=== PATIENT | female | born 1935 | race Caucasian/White ===

== ENCOUNTER 2019-12-04 08:50 | Outpatient (CLI) | payer MEDICARE, OTHER, SELFPAY ==
--- NOTE | ~2019-12-04 | XR_ITS ---
XR chest 2V DATE: 12/04/2019 09:13 INDICATION: Long-term amiodarone use TECHNIQUE: 2 views COMPARISON: 11/28/2017 PA and lateral chest FINDINGS: Borderline heart size. Aortic calcification, ectasia and tortuosity. No hilar or mediastina l enlargement. There is mild chronic discoid scarring in the lower lung zones. No interval pulmonary infiltrate or c onsolidation, pleural effusion or pulmonary vascular congestion or pneumothorax. Diffuse osteopenia. Thoracic kyphosis. IMPRESSION: Borderline heart size. Aortic calcification, ectasia, tortuosity No interval active pulmonary disease or significant change since 11/28/2017 Reviewed, dictated and finalized at location A.
[2019-12-04 09:27] LABS: Alanine Aminotransferase 13 U/L (4-35); Albumin Level 4.1 g/dL (3.5-5.1); Alkaline Phosphatase 80 U/L (38-126); Anion Gap 10.7 mmol/L (7-16); Aspartate Amino Transferase 22 U/L (14-36); Bilirubin,Total 0.3 mg/dL (0.2-1.3); Blood Urea Nitrogen 17 mg/dL (7-17); Carbon Dioxide 31 mmol/L (22-30); Chloride 101 mmol/L (98-107); Estimated Glomerular Filt Rate 60; Glucose 84 mg/dL (65-105); Potassium 3.7 mmol/L (3.4-5.0); Sodium 139 mmol/L (137-145)
[2019-12-04 10:13] LABS: Free T4 Free Thyroxine 2.05 ng/mL (0.78-2.19)
== END 2019-12-04 08:51 | disposition home or self-care (01) ==
PROVIDERS: PCP Internal Medicine; Visit Provider Internal Medicine Cardiovascular Disease
DX: Z79.899 Other long term (current) drug therapy (principal); I70.0 Atherosclerosis of aorta
CPT/HCPCS: 36415; 71046; 80053; 84439; 84443

== ENCOUNTER 2019-12-14 07:50 | Outpatient (CLI) | payer MEDICARE, OTHER, SELFPAY ==
--- NOTE | ~2019-12-14 | XR_ITS ---
EXAMINATION: XR abdomen/kub 1V INDICATION: Left renal mass TECHNIQUE: Supine views of the abdomen were obtained on 2 radiographs. COMPARISON: None FINDINGS: There are multiple phleboliths of the pelvis. No urinary tract calculi are identified. The lung bases are clear. The bowel gas pattern is normal. There are no dilated loops of bowel. Orthopedi c screws are noted in the right femoral neck. IMPRESSION: 1. Unremarkable abdominal radiographs. Reviewed, dictated and finalized at location A.
--- NOTE | ~2019-12-14 | CT_ITS ---
EXAMINATION: CT abdomen pelvis wo/w con DATE: 12/14/2019 08:42 INDICATION: Left kidney mass TECHNIQUE: Computed tomography (CT) of the abdomen was performed without intravenous contrast. CT of the abdomen and pelvis was then performed with a total of 100 mL Omnipaque 350 intravenous contrast. The dose-length product (DLP) was 661.05 mGy-cm. Automated exposure control and iterative reconstruct ion technique were employed. COMPARISON: 06/16/2015 FINDINGS: Minimal dependent atelectasis is present in the lung bases. The heart size is enlarged. Cys ts of the liver measure up to 1.9 cm in the right hepatic lobe. The spleen, pancreas, and adrenal gla nds are normal. Stones are present in the nondistended gallbladder. The common bile duct measures up to 7 mm which is within normal limits for patient age. There is calcified atherosclerosis of the aort a and many of the other arteries. No stones are identified in the kidneys, ureters, or bladder. There is no hydronephrosis or hydroureter. No suspicious renal or urothelial lesion is identified. No luis eduardo d left kidney mass is identified. Cysts of the kidneys measure up to 5.7 cm on the right. No patholo gically enlarged abdominal or pelvic lymph nodes are identified. There is no free intraperitoneal gas or evidence of bowel obstruction. Colonic diverticulosis is present without evidence of diverticulit is. Internal stabilization pins are present in the right femoral neck. There is mild lumbar spondylos is. IMPRESSION: 1. No suspicious renal or urothelial lesion identified. 2. Cholelithiasis without evidence of cholecystitis. 3. Cardiomegaly. 4. Diverticulosis without evidence of diverticulitis. Reviewed, dictated and finalized at location A.
== END 2019-12-14 07:51 | disposition home or self-care (01) ==
PROVIDERS: PCP Internal Medicine; Visit Provider Nurse Practitioner Adult Health
DX: N28.89 Other specified disorders of kidney and ureter (principal); K80.20 Calculus of gallbladder without cholecystitis without obstruction; I51.7 Cardiomegaly; K57.30 Diverticulosis of large intestine without perforation or abscess without bleeding
CPT/HCPCS: 74018; 74178; Q9967

== ENCOUNTER 2020-01-07 10:39 | Outpatient (CLI) | payer MEDICARE, OTHER, SELFPAY ==
--- NOTE | ~2020-01-07 | XR_ITS ---
XR sinus min 3V DATE: 01/07/2020 11:03 INDICATION: Headaches, sinus pain TECHNIQUE: 5 views COMPARISON: None FINDINGS: The paranasal sinuses are normally developed and aerated. No mucoperiosteal thickening, sof t tissue opacity or fluid level is evident. The mastoid air cells are unremarkable. IMPRESSION: No evidence of sinusitis Reviewed, dictated and finalized at location A. IMPRESSION: No evidence of sinusitis
== END 2020-01-07 10:40 | disposition home or self-care (01) ==
LOC: ANHIMG 10:47
PROVIDERS: PCP Internal Medicine; Visit Provider Internal Medicine
DX: J34.89 Other specified disorders of nose and nasal sinuses (principal); R51 Headache
CPT/HCPCS: 70220

== ENCOUNTER 2020-03-14 07:14 | Outpatient (CLI) | payer MEDICARE, OTHER, SELFPAY ==
--- NOTE | ~2020-03-14 | CT_ITS ---
EXAMINATION: CT brain wo con EXAM DATE: 03/14/2020 07:30 INDICATION: R26.89 - Other abnormalities of gait and mobility . TECHNIQUE: Spiral CT of the head was performed without contrast. Axial, coronal and sagittal images were reviewed. The dose-length product (DLP) for this examination was 605.33 mGy-cm. The exposure w as tailored according to patient size, and iterative reconstruction (ASIR) was used as additional dos e reduction technique. Comparison is made to prior examination from 11/13/2011. FINDINGS: There is no acute intraparenchymal hemorrhage. No evidence of intraparenchymal brain mass lesion. No evidence of acute infarction. Please note that initial head CT has limited sensitivity f or small or acute infarctions. There is moderate periventricular and subcortical hypodensity, nonspec ific but probably related to small vessel ischemic disease. There is moderate prominence of the sul ci and ventricles related to cerebral atrophy. There is intracranial carotid arteriosclerosis. The re are no extra-axial collections. There is no mass effect or midline shift. Patient has had bilate ral ocular lens surgery. Soft tissue is unremarkable. The visualized sinuses and mastoid air cells are well aerated. IMPRESSION: 1. No acute intracranial findings. 2. Chronic age related findings. Reviewed, dictated and finalized at location A. ESTRA DIRECTOR
== END 2020-03-14 07:15 | disposition home or self-care (01) ==
PROVIDERS: PCP Internal Medicine; Visit Provider Nurse Practitioner
DX: R26.89 Other abnormalities of gait and mobility (principal)
CPT/HCPCS: 70450

== ENCOUNTER 2020-03-21 09:36 | Outpatient (CLI) | payer MEDICARE, SELFPAY ==
[2020-03-21 10:48] LABS: Anion Gap 6 mmol/L (8-16); Blood Urea Nitrogen 26 mg/dL (7-17); Calcium 9.5 mg/dL (8.4-10.2); Carbon Dioxide 37 mmol/L (22-30); Chloride 97 mmol/L (98-107); Estimated Glomerular Filt Rate 43; Glucose 104 mg/dL (65-105); Potassium 3.4 mmol/L (3.4-5.0); Sodium 140 mmol/L (137-145)
== END 2020-03-21 09:37 | disposition home or self-care (01) ==
PROVIDERS: PCP Internal Medicine; Visit Provider Internal Medicine Cardiovascular Disease
DX: Z51.81 Encounter for therapeutic drug level monitoring (principal); Z79.899 Other long term (current) drug therapy; I10 Essential (primary) hypertension
CPT/HCPCS: 36415; 80048

== ENCOUNTER 2020-07-07 08:30 | Outpatient (CLI) | payer MEDICARE, SELFPAY ==
[2020-07-07 08:45] LABS: Hematocrit 41.3 % (37.0-47.0)
[2020-07-07 08:58] LABS: Alanine Aminotransferase 12 U/L (4-35); Albumin Level 3.9 g/dL (3.5-5.1); Alkaline Phosphatase 62 U/L (38-126); Anion Gap 3 mmol/L (8-16); Aspartate Amino Transferase 22 U/L (14-36); Bilirubin,Total 0.5 mg/dL (0.2-1.3); Blood Urea Nitrogen 21 mg/dL (7-17); Calcium 9.1 mg/dL (8.4-10.2); Carbon Dioxide 35 mmol/L (22-30); Chloride 104 mmol/L (98-107); Cholesterol 252 mg/dL (0-200); Estimated Glomerular Filt Rate 43; Glucose 90 mg/dL (65-105); HDL Direct 83 mg/dL; Potassium 3.6 mmol/L (3.4-5.0); Sodium 142 mmol/L (137-145); Triglycerides 62 mg/dL (<150)
[2020-07-07 09:09] LABS: LDL Cholesterol Direct 118 mg/dL
[2020-07-07 09:54] LABS: Iron 102 ug/dL (37-170)
[2020-07-07 10:04] LABS: Percent Iron Saturation 40 % (20-50)
== END 2020-07-07 08:31 | disposition home or self-care (01) ==
PROVIDERS: PCP Internal Medicine; Visit Provider Internal Medicine
DX: E78.5 Hyperlipidemia, unspecified (principal); I10 Essential (primary) hypertension; Z79.899 Other long term (current) drug therapy; D64.9 Anemia, unspecified; E61.1 Iron deficiency; E03.9 Hypothyroidism, unspecified
CPT/HCPCS: 36415; 80053; 80061; 83540; 83550; 84443; 85014; 85018

== ENCOUNTER 2020-11-16 16:10 | Emergency (ER) | payer MEDICARE, OTHER, SELFPAY ==
--- NOTE | ~2020-11-16 | XR_ITS ---
XR chest 1V DATE: 11/16/2020 16:58 INDICATION: Left subcapital femoral neck fracture TECHNIQUE: Supine AP view COMPARISON: 12/04/2019 PA and lateral chest FINDINGS: Cardiomegaly. Aortic calcification, ectasia and tortuosity. No pulmonary infiltrate or consolidation, pleural effusion or pulmonary vascular congestion or pneumo thorax is detected. Diffuse osteopenia. IMPRESSION: Cardiomegaly Aortic atherosclerosis No active pulmonary disease Diffuse osteopenia Reviewed, dictated and finalized at location A.
--- NOTE | ~2020-11-16 | CT_ITS ---
EXAMINATION: CT brain wo con EXAM DATE: 11/16/2020 16:49 INDICATION: Head laceration, injury, on blood thinners. TECHNIQUE: Spiral CT of the head was performed without contrast. Axial, coronal and sagittal images were reviewed. The dose-length product (DLP) for this examination was 605.33 mGy-cm. The exposure w as tailored according to patient size, and iterative reconstruction (ASIR) was used as additional dos e reduction technique. Comparison is made to prior examination from 03/14/2020. Findings: there is acute extra-axial hemorrhage overlying the right frontotemporal lobe. Uncertain wh ether or not this is subdural or epidural, however there is no overlying calvarial fracture. This nasrin sures up to 1.2 cm in thickness, is causing mild mass effect, about 5 mm contralateral midline shift. There is small amount of acute subarachnoid hemorrhage adjacent to the right mesial temporal lobe. Th ere is old left internal capsular lacunar infarction. No larger territorial infarction or brain mass. There is moderate atrophy and microangiopathy. No obstructive hydrocephalus. Bilateral cataract surg marcial. IMPRESSION: 1. Moderate-sized acute extra-axial hematoma overlying right frontotemporal lobe. Subdural versus ep idural location. No overlying calvarial fracture. 2. Small amount of right mesial temporal region acute subarachnoid hemorrhage. I discussed acute extra-axial hematoma with Ely Navarro PA-C at 11/16/2020 16:57 CDT. Reviewed, dictated and finalized at location A. IMPRESSION: 1. Moderate-sized acute extra-axial hematoma overlying right frontotemporal lo be. Subdural versus epidural location. No overlying calvarial fracture. 2. Small amount of right mesial temporal region acute subarachnoid hemorrhage. I discussed acute extra-axial hematoma with Ely Navarro PA-C at 11/16/2020 16:57 CDT.
--- NOTE | ~2020-11-16 | XR_ITS ---
XR hip LT 2V w AP pelvis DATE: 11/16/2020 16:57 INDICATION: Fall. Shortening and rotation of the left lower extremity TECHNIQUE: AP pelvis. AP and crosstable lateral views of left hip COMPARISON: None FINDINGS: There is a mildly superolaterally displaced left subcapital femoral neck fracture. Diffuse osteopenia. There are 3 pins for prior right subcapital femoral neck fracture. The pubic symphysis and sacroiliac joints are intact. No pelvic fracture is detected. Levoscoliosis and degenerative disc disease of the lumbar spine. IMPRESSION: Left subcapital femoral neck fracture Status post ORIF old right subcapital femoral neck fracture Osteopenia Reviewed, dictated and finalized at location A.
[2020-11-16 16:08] VITALS: BP 150/89; RESP 16; TEMP 36.8; O2SAT 93
--- NOTE | 2020-11-16 16:39 | ECG_ITS ---
Measurements Intervals [place] Rate: 73 P: IN: 0 QRS: -40 QRSD: 125 T: 50 QT: 441 QTc: 489 Interpretive Statements SINUS RHTYHM ATRIAL COUPLET AND ATRIAL PREMATURE COMPLEXES LEFT AXIS DEVIATION INTRAVENTRICULAR CONDUCTION DELAY LEFT VENTRICULAR HYPERTROPHY WITH ST-T CHANGE POOR R WAVE PROGRESSION, ANTERIOR LEADS BASELINE ARTIFACT- II, III, AVF, V3-V6 ABNORMAL ECG Electronically Signed On 11-16-2020 19:42:30 CDT by Johnathon Villanueva D.O.
--- NOTE | 2020-11-16 16:47 | ED.LOWEXIN ---
HPI - Extremity Injury (Lower) General Chief Complaint: Extremity Injury, Lower <Ely Navarro PA-C - Last Filed: 11/16/20 17:41> Stated Complaint: fall - left hip pain <MILAN Holm Last Filed: 11/16/20 17:41> Time Seen by Provider: 11/16/20 16:14 <Ely Navarro PA-C - Last Filed: 11/16/20 17:41> Source: patient <MILAN Holm Last Filed: 11/16/20 17:41> Mode of arrival: EMS <MILAN Holm Last Filed: 11/16/20 17:41> Limitations: no limitations <Ely Navarro PA-C - Last Filed: 11/16/20 17:41> History of Present Illness HPI Narrative: This is an 85-year-old female that presents to the emergency department via EMS for left hip pain after a fall today. Reports she was walking into a restaurant to eat dinner and tripped. Reports landing on her left side. Also reports hitting her head. Denies loss of consciousness or prodromal symptoms. Reports since the fall she has had left hip pain. Also reports a laceration of her left eyebrow. Patient is currently on rivaroxaban for history of atrial fibrillation. Denies neck pain, back pain, chest pain, shortness of breath, vision changes, vomiting, numbness, or weakness. <Ely Navarro PA-C - Last Filed: 11/16/20 17:41> Related Data Home Medications: Home Medications Medication Instructions Recorded Confirmed rivaroxaban 20 mg tablet 20 mg PO DAILY 07/03/19 08/22/20 chlorthalidone 25 mg tablet 25 mg PO DAILY 01/07/20 08/22/20 amiodarone 200 mg tablet 200 mg PO DAILY tablet 03/10/20 08/22/20 levothyroxine 125 mcg tablet 125 mcg PO DAILY 07/11/20 08/22/20 <MILAN Holm Last Filed: 11/16/20 17:41> Allergies/Adverse Reactions: Allergies Allergy/AdvReac Type Severity Reaction Status Date / Time Sulfa (Sulfonamide Allergy Unknown Unknown Verified 11/16/20 16:21 Antibiotics) <Ely Navarro PA-C - Last Filed: 11/16/20 17:41> Review of Systems Review of Systems: Narrative: CONSTITUTIONAL: Denies fever EYES: Denies visual changes CARDIOVASCULAR: Denies chest pain RESPIRATORY: Denies dyspnea. GASTROINTESTINAL: Denies vomiting MUSCULOSKELETAL: Reports joint pain and myalgia. Denies back pain NEUROLOGIC: Denies headache, numbness, or weakness. <Ely Navarro PA-C - Last Filed: 11/16/20 17:41> All systems reviewed & are unremarkable except as noted in HPI and below <Ely Navarro PA-C - Last Filed: 11/16/20 17:41> PMFSH Past Medical History Medical History: Medical History Atrial fibrillation Balance problems Dyslipidemia Hypertension <Ely Navarro PA-C - Last Filed: 11/16/20 17:41> Family History Family History: Family History Mother Family history of Parkinson's disease Patient's mother is Sibling Family history of Parkinson's disease Family history of Alzheimer's disease Father Patient's father is <Ely Navarro PA-C - Last Filed: 11/16/20 17:41> Social History Social History: Social History Smoking packs per day: 1 Smoking cigarettes per day: 20.0 Years smoked: 30 Smoking pack-years: 30.00 Smoking status: Former smoker Alcohol intake: never <Ely Navarro PA-C - Last Filed: 11/16/20 17:41> Exam Narrative: Exam Narrative: GENERAL: Elderly, well-nourished, and in no acute distress. HEAD: Normocephalic, atraumatic. EYES: PERRLA and EOMI. ENT: Nares clear, no rhinorrhea or epistaxis. Mucous membranes moist. Oropharynx without tonsillar hypertrophy exudate or other lesions. Bilateral TMs pearly ansari non-bulging NECK: Supple. No adenopathy or masses. No midline cervical spine tenderness CHEST: Clear to auscultation. No respiratory distress. No wheezes rales or rhonchi HEART: Regular rate and rhythm.
[2020-11-16] MEDS: ONDANSETRON INJ 4 MG/2 ML VIAL IV PUSH (17:03)
[2020-11-16] MEDS: MORPHINE SULFATE (*CRX) 4 MG/ML INJ IV PUSH (17:03)
[2020-11-16 17:08] VITALS: BP 150/83; PULSE 75; RESP 16; O2SAT 100
--- NOTE | 2020-11-16 17:09 | PC.NURSE ---
pedal pulses palpable, 3+ bilaterally
--- NOTE | 2020-11-16 17:10 | PC.NURSE ---
Daughter Anabella notified of pt's transfer to trauma facility.
--- NOTE | 2020-11-16 17:11 | PC.NURSE ---
O2 applied at 2l NC for spo2 89% on room air.
[2020-11-16 17:12] LABS: Basophils Percent Auto 0.6 % (0.2-1.2); Eosinophils Absolute Auto 0.1 K/mm3 (0-0.3); Eosinophils Percent Auto 1.1 % (0-4.4); Hematocrit 38.1 % (37.0-47.0); Hemoglobin 12.1 g/dL (12.0-15.0); Immature Granulocyte Absolute 0.04 K/mm3 (0.00-0.031); Immature Granulocyte Percent A 0.6 % (0-0.5); Lymphocytes Absolute Auto 1.09 K/mm3 (0.9-3.2); Lymphocytes Percent Auto 16.5 % (18.3-44.2); Mean Corpuscular HGB Conc 31.8 g/dl (32-36); Mean Corpuscular Hemoglobin 28.5 pg (26-34); Mean Corpuscular Volume 89.6 fl (80-100); Mean Platelet Volume 10.5 fl (7.4-10.4); Monocytes Absolute Auto 0.7 K/mm3 (0.1-0.6); Monocytes Percent Auto 10.3 % (2.6-8.5); Neutrophils Absolute Auto 4.7 K/mm3 (1.3-6.7); Neutrophils Percent Auto 70.9 % (45.5-73.1); Platelet Count Result 175 k/mm3 (150-375); Red Blood Count 4.25 M/mm3 (4.2-5.4); Red Cell Distribution Width 13.8 % (11.5-14.5); White Blood Count 6.6 K/mm3 (4.5-10.0)
[2020-11-16 17:22] LABS: Anion Gap 6 mmol/L (8-16); Blood Urea Nitrogen 16 mg/dL (7-17); Calcium 9.1 mg/dL (8.4-10.2); Carbon Dioxide 29 mmol/L (22-30); Chloride 101 mmol/L (98-107); Estimated CRCL calculation 34 ml/min; Estimated Glomerular Filt Rate 53; Glucose 115 mg/dL (65-110); Potassium 3.2 mmol/L (3.4-5.0); Sodium 136 mmol/L (137-145)
[2020-11-16 17:28] LABS: Prothrombin Time 12.7 Seconds (11.1-14.7)
[2020-11-16 17:29] LABS: Partial Thromboplastin Time 27.5 SECONDS (22.3-36.8)
[2020-11-16] MEDS: levETIRAcetam 1000MG/NACL100ML 1,000 MG/100 ML BAG 400 MG IVPB (17:29)
[2020-11-16] MEDS: TETANUS,DIPHTHERIA,AC PERTUSSIS ADULT (0.5 ML) BOOSTRIX IM (17:31)
--- NOTE | 2020-11-16 17:36 | PC.NURSE ---
To [facility] via [facility]. K[facility]ra not given due to delay from pharmacy. ERP aware.
[2020-11-16 17:37] VITALS: BP 147/86; PULSE 79; RESP 18; O2SAT 96
== END 2020-11-16 17:39 | disposition short-term general hospital (02) ==
PROVIDERS: Physician Assistant; Emergency Provider Emergency Medicine; PCP Internal Medicine
DX: S06.6X0A Traumatic subarachnoid hemorrhage without loss of consciousness, initial encounter (principal); W01.0XXA Fall on same level from slipping, tripping and stumbling without subsequent striking against object, initial encounter; Z79.01 Long term (current) use of anticoagulants; I48.91 Unspecified atrial fibrillation; I10 Essential (primary) hypertension; Z23 Encounter for immunization
CPT/HCPCS: 12011; 36415; 70450; 71045; 73502; 80048; 85025; 85610; 85730; 90471; 90715; 93005; 96374; 96375; 99291; J1953; J2270; J2405

== ENCOUNTER 2021-01-12 07:48 | Outpatient (CLI) | payer MEDICARE, SELFPAY ==
[2021-01-12 08:19] LABS: Hematocrit 38.6 % (37.0-47.0); Hemoglobin 11.8 g/dL (12.0-15.0)
[2021-01-12 08:46] LABS: Alanine Aminotransferase 13 U/L (4-35); Albumin Level 3.8 g/dL (3.5-5.1); Alkaline Phosphatase 65 U/L (38-126); Anion Gap 7 mmol/L (8-16); Aspartate Amino Transferase 21 U/L (14-36); Bilirubin,Total 0.6 mg/dL (0.2-1.3); Blood Urea Nitrogen 23 mg/dL (7-17); Calcium 9.5 mg/dL (8.4-10.2); Carbon Dioxide 31 mmol/L (22-30); Chloride 105 mmol/L (98-107); Cholesterol 227 mg/dL (0-200); Estimated Glomerular Filt Rate 60; Glucose 102 mg/dL (65-110); HDL Direct 85 mg/dL; Potassium 3.7 mmol/L (3.4-5.0); Sodium 143 mmol/L (137-145); Triglycerides 118 mg/dL (<150)
[2021-01-12 08:56] LABS: LDL Cholesterol Direct 84 mg/dL
== END 2021-01-12 07:49 | disposition home or self-care (01) ==
PROVIDERS: PCP Internal Medicine; Visit Provider Internal Medicine
DX: I10 Essential (primary) hypertension (principal); Z79.899 Other long term (current) drug therapy; E03.9 Hypothyroidism, unspecified; D64.9 Anemia, unspecified; E78.5 Hyperlipidemia, unspecified
CPT/HCPCS: 36415; 80053; 80061; 84443; 85014; 85018

== ENCOUNTER 2021-02-15 06:56 | Outpatient (CLI) | payer MEDICARE, OTHER, SELFPAY ==
--- NOTE | ~2021-02-15 | CT_ITS ---
EXAMINATION: CT abdomen pelvis w con DATE: 02/15/2021 07:43 INDICATION: Left lower quadrant abdominal pain. TECHNIQUE: Computed tomography (CT) of the abdomen and pelvis was performed with 100 mL Omnipaque 350 intravenous contrast. Automated exposure control and iterative reconstruction technique were employe d. The dose-length product was 331.21 mGy-cm. COMPARISON: CT abdomen and pelvis 12/14/2019 FINDINGS: The visualized portions of the lung bases demonstrate mild atelectasis and mild chronic nelson g disease. No pleural effusion. Cardiomegaly is noted. There are coronary artery calcifications. Ther e are calcifications of aortic valve. No pericardial effusion. There are cysts in the liver measuring up to 20 mm. There are gallstones in the gallbladder, which is normal in size. There is mild intrahe patic biliary duct dilatation. The common duct measures 13 mm. The spleen, pancreas, and adrenal glan ds are normal. There is cortical thinning of the kidneys. There are cysts in the kidneys measuring up to 5.3 cm on the right. There are scattered diverticula in the colon. There is wall thickening of si gmoid colon. The appendix is not visualized. There are no pathologically enlarged lymph nodes. There is no free intraperitoneal fluid. There is a bipolar left hip hemiarthroplasty. There is an old heale d fracture of right femoral neck with fixation with 3 pins. There is lumbar levoscoliosis and moderat e spondylosis. There is a chronic compression fracture of L5. IMPRESSION: 1. Stable mild wall thickening of the sigmoid colon, likely chronic diverticulitis. 2. Cholelithiasis. No evidence of acute cholecystitis. 3. Stable mild intrahepatic and extrahepatic biliary duct dilatation, likely not clinically significa nt given the normal liver function tests on 01/12/2021. Reviewed, dictated and finalized at location A. IMPRESSION: 1. Stable mild wall thickening of the sigmoid colon, likely chronic diverticuli tis. 2. Cholelithiasis. No evidence of acute cholecystitis. 3. Stable mild intrahepatic and extrahepatic biliary duct dilatation, likely no t clinically significant given the normal liver function tests on 01/12/2021.
[2021-02-15 07:35] LABS: Estimated Glomerular Filt Rate 60
== END 2021-02-15 06:57 | disposition home or self-care (01) ==
LOC: ANHIMG 06:57
PROVIDERS: PCP Internal Medicine; Visit Provider Nurse Practitioner Family
DX: R10.32 Left lower quadrant pain (principal); K80.20 Calculus of gallbladder without cholecystitis without obstruction
CPT/HCPCS: 74177; Q9967

== ENCOUNTER 2021-08-15 11:26 | Outpatient (CLI) | payer MEDICARE, SELFPAY ==
[2021-08-15 12:03] LABS: Alanine Aminotransferase 9 U/L (4-35); Albumin Level 3.9 g/dL (3.5-5.1); Alkaline Phosphatase 70 U/L (38-126); Anion Gap 6 mmol/L (8-16); Aspartate Amino Transferase 22 U/L (14-36); Bilirubin,Total 0.6 mg/dL (0.2-1.3); Blood Urea Nitrogen 20 mg/dL (7-17); Carbon Dioxide 30 mmol/L (22-30); Chloride 104 mmol/L (98-107); Cholesterol 240 mg/dL (0-200); Estimated Glomerular Filt Rate > 60; Glucose 97 mg/dL (65-110); HDL Direct 64 mg/dL; Potassium 3.7 mmol/L (3.4-5.0); Sodium 140 mmol/L (137-145); Triglycerides 100 mg/dL (<150)
[2021-08-15 12:14] LABS: LDL Cholesterol Direct 108 mg/dL
== END 2021-08-15 11:27 | disposition home or self-care (01) ==
LOC: ANHLAB 11:29
PROVIDERS: PCP Internal Medicine; Visit Provider Internal Medicine
DX: I10 Essential (primary) hypertension (principal); Z79.899 Other long term (current) drug therapy; E78.5 Hyperlipidemia, unspecified; E03.9 Hypothyroidism, unspecified
CPT/HCPCS: 36415; 80053; 80061; 84443

== ENCOUNTER 2021-11-14 13:25 | Outpatient (CLI) | payer MEDICARE, SELFPAY ==
[2021-11-14 14:01] LABS: Anion Gap 4 mmol/L (8-16); Blood Urea Nitrogen 23 mg/dL (7-17); Calcium 8.7 mg/dL (8.4-10.2); Carbon Dioxide 31 mmol/L (22-30); Chloride 105 mmol/L (98-107); Estimated Glomerular Filt Rate 47; Glucose 95 mg/dL (65-110); Magnesium 1.7 mg/dL (1.6-2.3); Potassium 4.2 mmol/L (3.4-5.0); Sodium 140 mmol/L (137-145)
== END 2021-11-14 13:26 | disposition home or self-care (01) ==
PROVIDERS: PCP Internal Medicine; Visit Provider Nurse Practitioner Adult Health
DX: I42.8 Other cardiomyopathies (principal); Z86.79 Personal history of other diseases of the circulatory system
CPT/HCPCS: 36415; 80048; 83735

== ENCOUNTER 2021-12-04 10:44 | Outpatient (CLI) | payer MEDICARE, SELFPAY ==
[2021-12-04 11:46] LABS: Iron 68 ug/dL (37-170)
[2021-12-04 11:52] LABS: Alanine Aminotransferase 10 U/L (6-35); Albumin Level 3.9 g/dL (3.5-5.1); Alkaline Phosphatase 65 U/L (38-126); Anion Gap 6 mmol/L (8-16); Aspartate Amino Transferase 22 U/L (14-36); Bilirubin,Total 0.5 mg/dL (0.2-1.3); Blood Urea Nitrogen 18 mg/dL (7-17); Calcium 9.2 mg/dL (8.4-10.2); Carbon Dioxide 30 mmol/L (22-30); Chloride 101 mmol/L (98-107); Cholesterol 222 mg/dL (0-200); Estimated Glomerular Filt Rate 59; Glucose 112 mg/dL (65-110); HDL Direct 83 mg/dL; Potassium 3.8 mmol/L (3.4-5.0); Sodium 137 mmol/L (137-145); Triglycerides 86 mg/dL (<150)
[2021-12-04 11:55] LABS: Percent Iron Saturation 19 % (20-50)
[2021-12-04 12:01] LABS: LDL Cholesterol Direct 82 mg/dL
== END 2021-12-04 10:45 | disposition home or self-care (01) ==
PROVIDERS: PCP Internal Medicine; Visit Provider Nurse Practitioner
DX: E61.1 Iron deficiency (principal); E78.2 Mixed hyperlipidemia; E03.9 Hypothyroidism, unspecified; N18.30 Chronic kidney disease, stage 3 unspecified
CPT/HCPCS: 36415; 80053; 80061; 83540; 83550; 84443

== ENCOUNTER 2022-04-09 11:31 | Outpatient (CLI) | payer MEDICARE, SELFPAY ==
[2022-04-09 12:26] LABS: Anion Gap 6 mmol/L (8-16); Blood Urea Nitrogen 25 mg/dL (7-17); Calcium 8.8 mg/dL (8.4-10.2); Carbon Dioxide 32 mmol/L (22-30); Chloride 102 mmol/L (98-107); Estimated Glomerular Filt Rate > 60; Glucose 100 mg/dL (65-110); Magnesium 1.8 mg/dL (1.6-2.3); Potassium 3.7 mmol/L (3.4-5.0); Sodium 140 mmol/L (137-145)
== END 2022-04-09 11:32 | disposition home or self-care (01) ==
PROVIDERS: PCP Internal Medicine; Visit Provider Nurse Practitioner Adult Health
DX: I48.0 Paroxysmal atrial fibrillation (principal)
CPT/HCPCS: 36415; 80048; 83735

== ENCOUNTER 2022-07-12 15:58 | Outpatient (CLI) | payer MEDICARE, SELFPAY ==
--- NOTE | ~2022-07-12 | CT_ITS ---
EXAMINATION: CT diagnostic chest wo con DATE: 07/12/2022 16:31 INDICATION: Lung nodule seen on prior examination TECHNIQUE: Computed tomography (CT) of the chest was performed without intravenous contrast. The dose -length product was 55.79 mGy-cm. Automated exposure control and iterative reconstruction technique w ere employed. COMPARISON: CT dated 02/15/2021 and chest dated and 11/16/2020 FINDINGS: There is atherosclerosis of the aorta and coronary arteries. There is thoracic aortic ectas ia of the descending thoracic aorta. No thoracic lymphadenopathy. No significant pleural or pericardi al effusions. There are persistent liver and right renal cysts. Gallbladder is only partially visuali zed. No endobronchial lesion. There is a subsolid 5 mm right upper lobe nodule. There are additional smaller right upper and left upper lobe nodules. No endobronchial lesions. There is bibasilar depende nt atelectasis. There is a 3 mm right lower lobe nodule, image 51. No pneumothorax. No focal airspace consolidation. There is moderate-severe thoracic spondylosis with accentuated kyphosis. There are he mangiomas in multiple vertebral bodies. There are mild wedge compression deformities of multiple midt horacic vertebra, likely chronic. IMPRESSION: 1. Multiple bilateral pulmonary nodules measuring 5 mm or less, likely benign. Recommend follow-up lo w dose CT chest in 12 months. Reviewed, dictated and finalized at location A. IMPRESSION: 1. Multiple bilateral pulmonary nodules measuring 5 mm or less, likely benign. Recommend follow-up low dose CT chest in 12 months.
== END 2022-07-12 15:59 | disposition home or self-care (01) ==
PROVIDERS: PCP Internal Medicine; Visit Provider Nurse Practitioner Family
DX: R91.8 Other nonspecific abnormal finding of lung field (principal)
CPT/HCPCS: 71250

== ENCOUNTER 2022-08-08 14:29 | Outpatient (CLI) | payer MEDICARE, SELFPAY ==
[2022-08-08 15:09] LABS: Hematocrit 34.4 % (37.0-47.0); Hemoglobin 10.3 g/dL (12.0-15.0); Mean Corpuscular HGB Conc 29.9 g/dl (32-36); Mean Corpuscular Hemoglobin 26.9 pg (26-34); Mean Corpuscular Volume 89.8 fl (80-100); Mean Platelet Volume 10.3 fl (7.4-10.4); Platelet Count Result 214 k/mm3 (150-375); Red Blood Count 3.83 M/mm3 (4.2-5.4); Red Cell Distribution Width 16.3 % (11.5-14.5); White Blood Count 4.6 K/mm3 (4.5-10.0)
[2022-08-08 15:25] LABS: Alanine Aminotransferase 14 U/L (6-35); Alkaline Phosphatase 77 U/L (38-126); Anion Gap 3 mmol/L (8-16); Aspartate Amino Transferase 22 U/L (14-36); Bilirubin,Total 0.5 mg/dL (0.2-1.3); Blood Urea Nitrogen 17 mg/dL (7-17); Calcium 8.7 mg/dL (8.4-10.2); Carbon Dioxide 32 mmol/L (22-30); Chloride 104 mmol/L (98-107); Cholesterol 238 mg/dL (0-200); Estimated Glomerular Filt Rate > 60; Glucose 96 mg/dL (65-110); HDL Direct 79 mg/dL; Potassium 3.9 mmol/L (3.4-5.0); Sodium 139 mmol/L (137-145); Triglycerides 80 mg/dL (<150)
[2022-08-08 15:37] LABS: LDL Cholesterol Direct 116 mg/dL
[2022-08-08 16:04] LABS: Hemoglobin A1C 5.2 % (<5.7)
[2022-08-08 16:11] LABS: Free T4 Free Thyroxine 1.11 ng/mL (0.78-2.19)
== END 2022-08-08 14:30 | disposition home or self-care (01) ==
PROVIDERS: PCP Internal Medicine; Visit Provider Internal Medicine
DX: I10 Essential (primary) hypertension (principal); I48.0 Paroxysmal atrial fibrillation; E03.9 Hypothyroidism, unspecified; E61.1 Iron deficiency; E78.2 Mixed hyperlipidemia; Z79.899 Other long term (current) drug therapy
CPT/HCPCS: 36415; 80053; 80061; 83036; 84439; 84443; 85027

== ENCOUNTER 2022-12-08 17:18 | Inpatient (IN) | payer MEDICARE, SELFPAY ==
[2022-12-08] VITALS (12 sets, daily range): BP systolic 118–160; BP diastolic 86–110; PULSE 114–172; RESP 18–23; TEMP 36.5–36.7; O2SAT 93–97; BMI 24.3
--- NOTE | ~2022-12-08 | XR_ITS ---
EXAMINATION: XR chest 1V portable DATE: 12/09/2022 21:06 INDICATION: Shortness of breath. TECHNIQUE: A single frontal view of the chest was obtained. COMPARISON: Chest single view 12/08/2022, chest CT 07/12/2022 FINDINGS: The patient is rotated to her left. There is an interstitial pattern, consistent with pulmo nary edema. There are small pleural effusions. There are airspace opacities in the mid and lower lung zones with a basilar predominance. No pneumothorax. Cardiomegaly is noted. IMPRESSION: 1. Worsened airspace opacities in the mid and lower lung zones with a basilar predominance, consisten t with atelectasis versus pneumonia. 2. Mild pulmonary edema. 3. Worsened small pleural effusions. 4. Cardiomegaly. Reviewed, dictated and finalized at location E. IMPRESSION: 1. Worsened airspace opacities in the mid and lower lung zones with a basilar p redominance, consistent with atelectasis versus pneumonia. 2. Mild pulmonary edema. 3. Worsened small pleural effusions. 4. Cardiomegaly.
--- NOTE | ~2022-12-08 | XR_ITS ---
EXAMINATION: XR chest 1V portable DATE: 12/08/2022 17:38 INDICATION: Weakness. Atrial fibrillation. TECHNIQUE: A single frontal view of the chest was obtained. COMPARISON: Chest single view 11/16/2020, chest CT 07/12/2022 FINDINGS: There is mild atelectasis versus scarring in the lower lung zones. No pleural effusion or p neumothorax. Cardiomegaly is noted. IMPRESSION: 1. Mild atelectasis versus scarring in the lower lung zones. 2. Cardiomegaly. Reviewed, dictated and finalized at location E.
--- NOTE | 2022-12-08 17:20 | ECG_ITS ---
Measurements Intervals [place] Rate: 163 P: [place]: 0 QRS: -37 QRSD: 112 T: 134 QT: 271 QTc: 447 Interpretive Statements ATRIAL FIBRILLATION WITH RAPID VENTRICULAR RESPONSE MARKED LEFT AXIS DEVIATION [QRS AXIS < -30] MODERATE INTRAVENTRICULAR CONDUCTION DELAY [105+ ms QRS DURATION, 80+ ms Q/S IN V1/V2, NO Q AND 60+ ms R IN I/aVL/V5/V6] MODERATE VOLTAGE CRITERIA FOR LVH, CONSIDER NORMAL VARIANT [MEETS CRITERIA IN ONE OF: R(aVL), S(V1), R(V5), R(V5/V6)+S(V1)] ST DEVIATION AND MODERATE T-WAVE ABNORMALITY, CONSIDER LATERAL ISCHEMIA [-0.1+ mV T WAVE IN I/aVL/V5/V6] ABNORMAL ECG COMPARED TO ECG 11/16/2020 16:20:42 ATRIAL FIBRILLATION NOW PRESENT Electronically Signed On 12-09-2022 10:03:14 CDT by Anthony Thakkar M.D.
[2022-12-08] MEDS: dilTIAZem HCl INJ 25 MG/5 ML VIAL 20 MG IV PUSH (17:38)
[2022-12-08] MEDS: SODIUM CHLORIDE 0.9% IV 1,000 ML 999 ML IV CONT (17:38)
[2022-12-08] MEDS: ASPIRIN 81 MG CHEWABLE TABLET 324 MG PO (17:39)
[2022-12-08 17:43] LABS: Basophils Absolute Auto 0.1 K/mm3 (0.0-0.1); Basophils Percent Auto 1.4 % (0.2-1.2); Eosinophils Absolute Auto 0.1 K/mm3 (0-0.3); Hematocrit 35.5 % (37.0-47.0); Hemoglobin 10.8 g/dL (12.0-15.0); Immature Granulocyte Absolute 0.02 K/mm3 (0.00-0.031); Immature Granulocyte Percent A 0.3 % (0-0.5); Lymphocytes Absolute Auto 1.29 K/mm3 (0.9-3.2); Lymphocytes Percent Auto 19.6 % (18.3-44.2); Mean Corpuscular HGB Conc 30.4 g/dl (32-36); Mean Corpuscular Hemoglobin 26.9 pg (26-34); Mean Corpuscular Volume 88.3 fl (80-100); Mean Platelet Volume 11.1 fl (7.4-10.4); Monocytes Absolute Auto 0.7 K/mm3 (0.1-0.6); Monocytes Percent Auto 10.3 % (2.6-8.5); Neutrophils Absolute Auto 4.4 K/mm3 (1.3-6.7); Neutrophils Percent Auto 66.4 % (45.5-73.1); Platelet Count Result 230 k/mm3 (150-375); Red Blood Count 4.02 M/mm3 (4.2-5.4); Red Cell Distribution Width 16.2 % (11.5-14.5); White Blood Count 6.6 K/mm3 (4.5-10.0)
[2022-12-08 17:58] LABS: INR 3.5; Partial Thromboplastin Time 51.5 SECONDS (22.3-36.8); Prothrombin Time 38.4 Seconds (11.1-14.7)
[2022-12-08 18:00] LABS: Alanine Aminotransferase 20 U/L (6-35); Albumin Level 3.9 g/dL (3.5-5.1); Alkaline Phosphatase 73 U/L (38-126); Anion Gap 11 mmol/L (8-16); Aspartate Amino Transferase 27 U/L (14-36); Bilirubin,Total 0.9 mg/dL (0.2-1.3); Blood Urea Nitrogen 27 mg/dL (7-17); Calcium 8.7 mg/dL (8.4-10.2); Carbon Dioxide 26 mmol/L (22-30); Chloride 103 mmol/L (98-107); Estimated CRCL calculation 31 ml/min; Estimated Glomerular Filt Rate 47; Glucose 106 mg/dL (65-110); Lipase 38 U/L (23-300); Magnesium 1.8 mg/dL (1.6-2.3); Potassium 3.2 mmol/L (3.4-5.0); Sodium 140 mmol/L (137-145)
[2022-12-08 18:11] LABS: Troponin I < 0.012 ng/mL (0.000-0.034)
[2022-12-08] MEDS: dilTIAZem 100 MG/100 ML 100 MG/100 ML BAG IV CONT (18:24)
[2022-12-08 18:29] LABS: D Dimer 0.62 ug/mL (<0.48)
--- NOTE | 2022-12-08 18:44 | ED.ARRPALP ---
HPI - Arrhythmia/Palpitations General Chief Complaint: Arrhythmia/Palpitations Stated Complaint: in afib Time Seen by Provider: 12/08/22 17:26 History of Present Illness HPI narrative: This is an 87-year-old female, with past history of A-fib, on Xarelto who presents to the emergency department complaining of 5 days of palpitations and general malaise. The patient denies any known sick contacts, recent travel or change in medications. She states she has felt short of breath and fatigued with today being worse than usual. She denies chest pain. Related Data Home Medications Medication Instructions Recorded Confirmed chlorthalidone 25 mg tablet 25 mg PO DAILY 01/07/20 07/30/22 amiodarone 200 mg tablet 200 mg PO DAILY 03/10/20 07/30/22 cephalexin 250 mg capsule 250 mg PO Q12H 07/30/22 07/30/22 metoprolol tartrate 75 mg tablet 25 mg PO BID 07/30/22 07/30/22 Allergies Allergy/AdvReac Type Severity Reaction Status Date / Time Sulfa (Sulfonamide Allergy Unknown Unknown Verified 12/08/22 17:57 Antibiotics) Review of Systems Review of Systems: CONSTITUTIONAL: Fatigue denies fever, chills, or sweats. CARDIOVASCULAR: Palpitations denies chest pain, or edema. RESPIRATORY: Denies cough or dyspnea. GASTROINTESTINAL: Denies abdominal pain, nausea, vomiting, or diarrhea. GENITOURINARY: Denies dysuria or hematuria. SKIN: Denies rash or itching. MUSCULOSKELETAL: Denies back pain, joint pain, or myalgia. NEUROLOGIC: Denies headache, numbness, dizziness, or weakness. PSYCHIATRIC: Denies anxiety or depression. [facility] Past Medical History Medical History Adult hypothyroidism Aortic stenosis Atrial fibrillation Balance problems COVID-19 Dyslipidemia Generalized anxiety disorder Hip fracture Hypertension Iron deficiency Macular degeneration Preventative health care SAH (subarachnoid hemorrhage) Surgical History Surgical History History of repair of left hip joint Family History Family History Mother Family history of Parkinson's disease Patient's mother is Sibling Family history of Parkinson's disease Family history of Alzheimer's disease Father Patient's father is Social History Social History Smoking packs per day: 1 Smoking cigarettes per day: 20.0 Years smoked: 30 Smoking pack-years: 30.00 Smoking status: Former smoker Tobacco type: cigarettes Alcohol intake: current Alcohol use details: beer every 5 months Substance use: never Substance use type: does not use Lack of Transportation: No Lack of Food: Never True Current Housing: I Have Housing Concerned About Future Housing: No Difficulty Paying Gas/Electric Bills: No Difficulty Paying for Meds: No Currently Unemployed: No Education: High School Diploma/GED Difficulty w/ Childcare or Family Care: No Exam Narrative: GENERAL: Well-developed, well-nourished, and in no acute distress. HEAD: Normocephalic, atraumatic. EYES: PERRLA and EOMI. ENT: Nares clear, no rhinorrhea or epistaxis. Mucous membranes moist. Oropharynx without tonsillar hypertrophy exudate or other lesions. NECK: Supple. No JVD CHEST: Clear to auscultation. No respiratory distress. No wheezes rales or rhonchi HEART: Irregularly irregular rhythm. No murmur heard. Normal peripheral pulses. ABDOMEN: Soft, nontender, nondistended, normal active bowel sounds. EXTREMITIES: Normal range of motion. No edema. SKIN: Warm, dry, no rash. NEURO: Alert and oriented x3. Moving all 4 limbs purposefully. PSYCH: Normal mood and affect. Course Course Emergency Course: 17:31 - Patient tachycardic to rate 160s. This appears to be A-fib with RVR on the monitor. Systolic pressure in the 1
[2022-12-08] MEDS: POTASSIUM CHLORIDE 20 MEQ PACKET (FOR LIQUID) 40 MEQ PO (19:00)
--- NOTE | 2022-12-08 20:53 | PC.NURSE ---
This patient, Reyna Richardson, was admitted to IMU Room 213-01 on 12/08/22 at 2030 . Patient/family oriented to hospital policies and general routines including ID bracelet, bed and alarms, visiting hours, pain management, procedures, bathroom and other care routines, personal items, smoking policy, room service/diet, and visiting hours. Information on how to activate the Rapid Response Team has been discussed. Patient/Family are encouraged to report perceived risks to care and to ask questions if they do not understand what they are told or what they should do.
[2022-12-08 21:19] LABS: Troponin I < 0.012 ng/mL (0.000-0.034)
--- NOTE | 2022-12-08 21:33 | PM.IMHP ---
H&P: HPI History of Present Illness Date/Time: 12/08/22 22:00 Chief Complaint: Palpitations. Narrative: This is a pleasant 87-year-old female with paroxysmal atrial fibrillation on chronic anticoagulation, moderate aortic valve stenosis on echocardiogram in July 2020, hypothyroidism, hypertension, and other comorbidities who presented to the emergency department via private vehicle from home for evaluation of palpitations. The patient provides the following history. She has not been feeling well for about 6 days with fatigue and intermittent sensations of racing heart and palpitations, worse at nighttime. Today she started to feel a bit short of breath and noticed that her feet were swelling and she decided to come in for evaluation. She was in atrial fibrillation with rapid ventricular response on arrival to the ED with a heart rate of 166. Blood pressures have remained stable. Labs were significant for a chronic and stable anemia, potassium of 3.2, and a creatinine of 1.10 which is up a little bit from her baseline. Initial troponin was negative. D-dimer was negative when adjusted for age. She was started on a diltiazem drip without much improvement and she has since been transitioned to an amiodarone drip. She is being admitted in this setting for further treatment and evaluation. She denies syncope, near syncope, chest pain, pleuritic pain, nausea, and vomiting. She states compliance with her home medications. She drinks perhaps 2 cups of coffee a day, rare alcohol a few times a year. Denies history of were concerns for sleep apnea. Review of Systems Review of Systems: Twelve systems were reviewed and are negative except for as per HPI. [facility] Past Medical History Medical History (Updated 12/08/22 @ 21:42 by Jennyfer Vidales PA-C) Aortic stenosis Balance problems COVID-19 Dyslipidemia Generalized anxiety disorder Hypertension Hypothyroidism Iron deficiency Macular degeneration Paroxysmal atrial fibrillation Subarachnoid hemorrhage Surgical History Surgical History History of repair of left hip joint Family History Family History Mother Family history of Parkinson's disease Patient's mother is Sibling Family history of Parkinson's disease Family history of Alzheimer's disease Father Patient's father is Social History Social History (Updated 12/08/22 @ 23:02 by Jennyfer Vidales PA-C) Social History: Surrogate medical decision maker: Anabella Richardson. Code status: Full code. Smoking packs per day: 1 Smoking cigarettes per day: 20.0 Years smoked: 30 Smoking pack-years: 30.00 Smoking status: Former smoker Tobacco type: cigarettes Second hand tobacco smoke exposure: No Additional smoking assessment comments: Doesn't remember full smoking history Alcohol intake: current Drinks per week: 1 Alcohol use details: One beer perhaps every 5 months. Substance use: never Substance use type: does not use Lack of Transportation: No Lack of Food: Never True Current Housing: I Have Housing Concerned About Future Housing: No Difficulty Paying Gas/Electric Bills: No Difficulty Paying for Meds: No Currently Unemployed: No Education: High School Diploma/GED Difficulty w/ Childcare or Family Care: No Additional living arrangements comments: Lives with spouse. Spiritual care concerns: No Meds Home Medications and Allergies Home Medications Medication Instructions Recorded Confirmed Type levothyroxine 150 mcg tablet 150 mcg PO DAILY #30 tabs 11/30/21 12/08/22 Rx rivaroxaban 20 mg tablet (Xarelto) 20 mg PO DAILY #90 tabs 12/07/21 12/08/22 Rx alprazolam 0.25 mg tablet 0.25 mg PO TID PRN anxiety #80 tabs 11/02/22 12/08/22 Rx Allergies Allergy/AdvReac Type Severity Reaction Status Date / Time Sulfa (Sulfonami
[2022-12-08] MEDS: AMIODARONE 150 MG/D5W 100 ML 150 MG/100 ML BAG 600 MG IV CONT (22:07)
[2022-12-08] MEDS: AMIODARONE 360 MG/D5W 200 ML 360 MG/200 ML BAG 33.33 MG IV CONT (22:43)
[2022-12-09] VITALS (24 sets, daily range): BP systolic 121–145; BP diastolic 81–102; PULSE 106–142; RESP 16–28; TEMP 35.8–36.9; O2SAT 90–99
[2022-12-09 01:05] LABS: Troponin I < 0.012 ng/mL (0.000-0.034)
[2022-12-09] MEDS: ALPRAZolam (*CRX) 0.25 MG TABLET PO ×3 (04:30→19:27)
[2022-12-09] MEDS: AMIODARONE 360 MG/D5W 200 ML 360 MG/200 ML BAG 33.33 MG IV CONT ×4 (04:30→23:27)
[2022-12-09 04:45] LABS: Basophils Absolute Auto 0.1 K/mm3 (0.0-0.1); Eosinophils Absolute Auto 0.1 K/mm3 (0-0.3); Eosinophils Percent Auto 1.8 % (0-4.4); Hematocrit 34.7 % (37.0-47.0); Hemoglobin 10.6 g/dL (12.0-15.0); Immature Granulocyte Absolute 0.03 K/mm3 (0.00-0.031); Immature Granulocyte Percent A 0.4 % (0-0.5); Lymphocytes Absolute Auto 1.09 K/mm3 (0.9-3.2); Lymphocytes Percent Auto 14.3 % (18.3-44.2); Mean Corpuscular HGB Conc 30.5 g/dl (32-36); Mean Corpuscular Hemoglobin 27.4 pg (26-34); Mean Corpuscular Volume 89.7 fl (80-100); Mean Platelet Volume 11.2 fl (7.4-10.4); Monocytes Absolute Auto 0.8 K/mm3 (0.1-0.6); Monocytes Percent Auto 9.8 % (2.6-8.5); Neutrophils Absolute Auto 5.5 K/mm3 (1.3-6.7); Neutrophils Percent Auto 72.7 % (45.5-73.1); Platelet Count Result 222 k/mm3 (150-375); Red Blood Count 3.87 M/mm3 (4.2-5.4); Red Cell Distribution Width 16.4 % (11.5-14.5); White Blood Count 7.6 K/mm3 (4.5-10.0)
[2022-12-09 04:53] LABS: Anion Gap 7 mmol/L (8-16); Blood Urea Nitrogen 26 mg/dL (7-17); Calcium 8.6 mg/dL (8.4-10.2); Carbon Dioxide 26 mmol/L (22-30); Chloride 104 mmol/L (98-107); Estimated CRCL calculation 33 ml/min; Estimated Glomerular Filt Rate 59; Glucose 134 mg/dL (65-110); Magnesium 1.8 mg/dL (1.6-2.3); Potassium 3.8 mmol/L (3.4-5.0); Sodium 137 mmol/L (137-145)
[2022-12-09 04:57] LABS: Appearance Urine Turbid (Clear); Bacteria Urine Rare /hpf; Bilirubin Urine 1+ (Negative); Blood Urine 3+ (Negative); Color Urine Dark Yellow (Yellow); Glucose Urine UA Negative (Negative); Ketones Urine Trace mg/dL (Negative); Leukocyte Esterase Ur 2+ LEU/UL (Negative); Need Manual Microscopic Reviewed; Nitrate Urine Negative (Negative); Protein Urine 2+ mg/dL (Negative); RBC Urine >100 /hpf (0-2); Squamous Epithelial Cell Urine None seen /hpf (Few)
[2022-12-09 04:59] LABS: Specific Grav Ur 1.036 (1.001-1.035)
[2022-12-09 05:02] LABS: Prothrombin Time 34.1 Seconds (11.1-14.7)
[2022-12-09 05:02] LABS: Add Urine Microscopic? YES
[2022-12-09 05:03] LABS: Partial Thromboplastin Time 50.4 SECONDS (22.3-36.8)
[2022-12-09] MEDS: METOPROLOL TARTRATE INJ 5 MG/5 ML VIAL (05:38)
[2022-12-09 08:21] LABS: Total Triiodothyronine (T3) 0.78 NG/ML (0.97-1.69)
[2022-12-09] MEDS: LEVOTHYROXINE SODIUM 150 MCG TABLET PO (09:59)
--- NOTE | 2022-12-09 10:50 | PM.CNCAR ---
Assessment and Plan Assessment and plan (1) Atrial fibrillation with RVR: Code(s): I48.91 - Unspecified atrial fibrillation Status: Acute Assessment and Plan: She was amiodarone but has likely been out of work for couple of weeks. She is now back in atrial fibrillation. Will continue her amiodarone drip. 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 Will definitely keep the potassium greater than 4 and magnesium greater than 2. Continue anticoagulation with Xarelto. She has not missed any doses. Will therefore keep her NPO after midnight with intention of pursuing cardioversion tomorrow. Likely discharge after that if stable. Will replace potassium 40 mg p.o. x1 as well as magnesium 2 g IV x1. She is also on metoprolol tartrate 25 mg p.o. b.i.d. as an outpatient and will resume this at this point. EKG tomorrow (2) Hypokalemia: Code(s): E87.6 - Hypokalemia Status: Acute Assessment and Plan: KCL 40 mEq p.o. x1 As her K is low (3) Anticoagulation adequate with anticoagulant therapy: Code(s): Z79.01 - penitentiary (current) use of anticoagulants Status: Acute Assessment and Plan: Continue Xarelto (4) Adult hypothyroidism: Code(s): E03.9 - Hypothyroidism, unspecified Status: Acute Assessment and Plan: Continue levothyroxine (5) Essential (primary) hypertension: Code(s): I10 - Essential (primary) hypertension Status: Acute Assessment and Plan: Near goal for age History of Present Illness History of Present Illness Consult date/time: 12/09/22 10:50 Requesting physician: Mahesh Vitale MD Consult reason: atrial fibrillation Reason For Visit: Afib RVR Narrative: Reason for evaluation: Atrial fibrillation. Reason consultation: Atrial fibrillation Requesting provider: Dr. Vitale Date of service 12/09/2022 History patient is an 87-year-old patient of [employer] rise a history of paroxysmal atrial fibrillation dating back to 2008. She he was admitted at [facility] last year for AFib with RVR. She did eventually convert to sinus rhythm but did have an episode of torsade secondary to hypokalemia thought to be from excessive diuresis. Over the past week or so she has been feeling lethargic, short of breath with activity and especially weak with activity such as walking around the house. She denies any chest pain, syncope, paroxysmal nocturnal dyspnea, orthopnea, edema or palpitations. She has been compliant with her Xarelto. No bleeding problems. She was started initially on a diltiazem drip without significant benefit. She was then put on amiodarone with some improvement heart rate Review of Systems Review of Systems: All systems reviewed & are unremarkable except as noted in HPI and below Constitutional: Constitutional: Denies body ache(s) Eyes: Eyes: Reports blurry vision ENT: Reports Normal hearing present Cardiovascular: Cardiovascular: Denies chest pain and Reports lightheadedness Respiratory: Respiratory: Denies chest congestion and Reports dyspnea on exertion Gastrointestinal: Gastrointestinal: Denies abdominal pain Genitourinary: Genitourinary: Denies hematuria Musculoskeletal: Musculoskeletal: Denies back pain Integumentary/Breasts: Skin/Breast: Denies erythema Neurologic: Denies confusion Psychiatric: Psychiatric: Denies anxiety and Denies behavioral changes Endocrine: Endocrine: Denies excessive sweating Hematologic/Lymphatic: Hematologic/Lymphatic: Denies easy bleeding Allergic/Immunologic: Allergic/Immunologic: Denies GI upset with certain foods PMFSH Past Medical History Medical History Aortic stenosis Balance problems COVID-19 Dyslipidemia Generalized anxiety disorder Hypertension Hypothyroidism Iron deficiency Macular degeneration Paroxysmal atrial fibrillati
--- NOTE | 2022-12-09 11:10 | PM.IMPN ---
Progress Note: A&P Assessment and Plan (1) Atrial fibrillation with rapid ventricular response: Code(s): I48.91 - Unspecified atrial fibrillation Status: Acute (2) Hypokalemia: Code(s): E87.6 - Hypokalemia Status: Acute (3) Prolonged prothrombin time (PT) and partial thromboplastin time (PTT): Code(s): R79.1 - Abnormal coagulation profile Status: Acute (4) Hypertension: Code(s): I10 - Essential (primary) hypertension Status: Acute (5) Hypothyroidism: Code(s): E03.9 - Hypothyroidism, unspecified Status: Acute Plan The patient presented to the emergency department for evaluation of palpitations and racing heart for the last 6 days as per HPI. Labs, imaging, EKG, and all reports were personally reviewed. She has been in atrial fibrillation with rapid ventricular response with rates as high as the 160s. She states compliance with her home medication however she is unable to tell us exactly what medication she takes at home though she does remember that she takes levothyroxine. She was started on a diltiazem drip without much improvement and is now on an amiodarone drip with some improvement in her rate. Her home medications will need to be verified with her pharmacy 1st thing in the morning. PT, PTT, and INR are all prolonged, possibly transiently depending on when she took her Xarelto. Repeat coags in a.m. and if improved would resume Xarelto. Her blood pressures have been running pretty consistently in the 140s to 150s systolic. We will continue to monitor these closely. Continue levothyroxine, pending TSH. Cardiology has been consulted and their input is greatly appreciated. Subjective Date/time seen: 12/09/22 11:10 Interval history: Heart rate is still elevated Exam Narrative: General: Well-developed elderly female sitting up in bed in no acute distress. Weight: 64.4 kg. BMI: 24.4. HEENT: Wearing corrective lenses. PERRL, EOMI. Sclera anicteric. Oral mucosa moist. Neck: Supple. No JVD. Respiratory: Lungs are clear to auscultation bilaterally. Cardiovascular: Irregularly irregular rate and rhythm. Monitor shows AFib/RVR with rates between the 120s to 140s. Systolic murmur at the upper sternal border. Gastrointestinal: Abdomen is soft, nontender, and nondistended with positive bowel sounds. Skin: Warm and dry. No rash or lesions on limited exam. Extremities: No cyanosis or clubbing. 2+ ankle edema bilaterally. Radial and pedal pulses intact. Neurological: Alert. Cranial nerves 2-12 are grossly intact. Speech is clear. No gross focal deficits to casual conversation. Psychiatric: Pleasant and cooperative. She is a bit repetitive and slightly forgetful. Appropriate mood and affect. She is in good spirits. Objective Data Vital Signs Vital Signs: Vital Signs - 24 hr 12/08/22 17:23 12/08/22 17:29 12/08/22 18:24 Temperature 98.0 F Pulse Rate 166 H 172 H 114 H Respiratory Rate 20 Blood Pressure 160/103 H 135/92 H Pulse Oximetry 93 Oxygen Delivery Room Air 12/08/22 19:50 12/08/22 20:48 12/08/22 22:07 Temperature 97.7 F Pulse Rate 126 H 119 H 130 H Respiratory Rate 23 H 22 H Blood Pressure 147/110 H 150/94 H 150/94 H Pulse Oximetry 93 97 Oxygen Delivery 12/08/22 22:09 12/08/22 22:43 12/08/22 23:43 Temperature 97.7 F Pulse Rate 130 H 143 H 145 H Respiratory Rate 18 Blood Pressure 150/94 H 118/86 Pulse Oximetry 96 Oxygen Delivery 12/08/22 20:40 12/08/22 22:00 12/08/22 23:14 Temperature Pulse Rate 149 H 154 H Respiratory Rate Blood Pressure Pulse Oximetry 97 Oxygen Delivery Room Air 12/09/22 00:00 12/09/22 00:00 12/09/22 00:00 Temperature Pulse Rate 134 H 134 H Respiratory Rate Blood Pressure Pulse Oximetry 96 Oxygen Delivery Room Air 12/09/22 02:00 12/09/22 04:30 12/09/22 04:40 Temperature 97.6 F Pulse Rate 124 H 141 H 142 H Respiratory Rate 16 Blood Pressu
[2022-12-09] MEDS: POTASSIUM CHLORIDE 20 MEQ ER TABLET 40 MEQ PO (13:00)
[2022-12-09] MEDS: MAGNESIUM SULF 2 GM/WATER 50ML 2 GM/50 ML BAG IVPB (13:00)
[2022-12-09] MEDS: RIVAROXABAN 20 MG TABLET PO (17:59)
[2022-12-09] MEDS: METOPROLOL TARTRATE 25 MG TABLET PO (19:27)
[2022-12-09 20:59] LABS: Glucose Point of Care 123 mg/dl (65-105)
[2022-12-09 21:20] LABS: Alveolar/Arterial O2 Gradient 88.6 mmHg; Base Excess ABG -6.4 mEq/l (+/-2.0); Carboxyhemoglobin 0.3 % THb (0-2.0); Fractional Inspired Oxygen 28 %; HCO3 ABG 17.4 mEq/l (22.0-26.0); Methemoglobin ABG 0.1 %THb (0-1.5); Oxygen Content ABG 15.5 %vol (16.0-22.0); Oxygen Saturation ABG 95.3 % (95.0-100.0); Oxyhemoglobin 93.7 % THb (90.0-100.0); PCO2 ABG 29.6 mmHg (35.0-45.0); PO2 ABG 76.1 mmHg (80.0-100.0); PO2 FiO2 Ratio Arterial Blood 2.72 %; Reduced Hemoglobin 5.9 %THb (0-5.0); Total Hemoglobin 11.7 g/dL (12.0-18.0); pH ABG 7.388 (7.350-7.450)
[2022-12-09 21:24] LABS: Modified Allen's Test Pass; Site Drawn LEFT RADIAL
[2022-12-09 21:25] LABS: Device NASAL CANNULA
[2022-12-09] MEDS: FUROSEMIDE INJ 40 MG/4 ML VIAL IV PUSH (21:31)
[2022-12-09] MEDS: MORPHINE SULFATE (*CRX) 2 MG/ML INJ 1 MG IV PUSH (21:31)
--- NOTE | 2022-12-09 22:33 | P.PNCROSS_ITS ---
Event Note Event Note Event Note: I was called to evaluate patient after sudden onset of altered mental status, a gitation, restlessness, shortness of breath, cold clammy diaphoretic. Subjective: Does not now was going on. objective: Patient is tachypnea, a awake, alert. Vitals: Heart rate: 112 blood pressure: 147/111 pulse ox is 93% on supplemental oxygen by nasal cannula 2 L general: Patient is laying in bed, mild respiratory distress, agitated, restless, confused. HEENT : Atraumatic normocephalic, no JVD, no lymphadenopathy, PERRLA, EOM intact, face symmetric. respiratory: Bilateral bibasal crackles, diminished breath sounds. Throughout cardiovascular: S1-S2 heard no murmurs rubs or gallops abdomen: Soft nontender nondistended no hepatosplenomegaly extremities: No edema skin: Intact, clammy, diaphoretic central nervous system: Patient is alert awake oriented x2 assessment and plan: 1. Acute respiratory distress: Chest x-ray shows worsening pleural effusion right-sided and worsening infiltrate of the right side noted infiltrate of the left side as well, likely fluid overload patient will get 40 IV of Lasix and 1 mg of morphine.Ordered ABG 2.UTI: Will start Rocephin, await cx. 3.AMS: LIKELY SECONDARY TO ABOVE
[2022-12-10] VITALS (26 sets, daily range): BP systolic 111–146; BP diastolic 84–98; PULSE 58–119; RESP 18–36; TEMP 36.2–36.6; O2SAT 91–100
--- NOTE | 2022-12-10 | ECHO_ITS ---
Patient Info Name: Reyna Richardson Age: 87 years : 1935 Gender: Female Ht: 64 in Wt: 141 lbs BSA: 1.71 m2 HR: 112 bpm BP: 121 / 95 mmHg Heart Rhythm: Sinus Rhythm Technical Quality: Fair Exam Date: 12/10/2022 10:10 AM Exam Location: [facility] Card Pulmonary Patient Status: Inpatient Admit Date: 12/09/2022 Staff Ordering Physician: Jennyfer Vidales PA-C Drinking Water Technician: Tiffany Briscoe RDCS Attending Provider: Mel Shankar MD Referring Physician: Flash ALMEIDA; Exam Type: CA echo doppler color flow Study Info Indications - Afib, Complete two-dimensional, color flow and Doppler transthoracic echocardiogram is performed. Summary 1. Complete two-dimensional, color flow and Doppler transthoracic echocardiogram is performed. 2. Left ventricular chamber dimension is normal. 3. Left ventricular systolic function is severely reduced, estimated at 25%. 4. There is mildly increased left ventricular wall thickness. 5. Left ventricular septal wall motion is abnormal with septal motion related to bundle branch block. 6. Right ventricular chamber dimension is mildly enlarged. 7. Right ventricular systolic function is reduced. 8. There is moderate to severe aortic valve stenosis with a peak velocity of 191 cm/s, mean gradient of 7 mmHg, and aortic valve area of 0.8 cm2. 9. There is mild mitral valve regurgitation. 10. There is mild eccentric tricuspid valve regurgitation which may underestimate severity. 11. Mild pulmonary hypertension, estimated pulmonary arterial systolic pressure is 43 mmHg. Left Ventricle Left ventricular chamber dimension is normal. Left ventricular systolic function is severely reduced, estimated at 25%. There is mildly increased left ventricular wall thickness. Left ventricular septal wall motion is abnormal with septal motion related to bundle branch block. Right Ventricle Right ventricular chamber dimension is mildly enlarged. Right ventricular systolic function is reduced. Left Atria Left atrial chamber dimension is mildly enlarged. Right Atria Right atrial chamber dimension is mildly enlarged. Aortic Valve The aortic valve is not well visualized. There is moderate to severe aortic valve stenosis with a peak velocity of 191 cm/s, mean gradient of 7 mmHg, and aortic valve area of 0.8 cm2. There is no aortic valve regurgitation. Pulmonic Valve The pulmonic valve is not well visualized. Mitral Valve The mitral valve has normal leaflets. There is mild mitral valve regurgitation. The mitral valve annulus is mildly calcified. Tricuspid Valve The tricuspid valve leaflets are normal. There is mild eccentric tricuspid valve regurgitation which may underestimate severity. Mild pulmonary hypertension, estimated pulmonary arterial systolic pressure is 43 mmHg. Pericardium/Pleural The pericardium appears normal. There is trivial pericardial effusion. Left pleural effusion. Inferior Vena Cava Normal inferior vena cava with <50% collapse upon inspiration consistent with elevated right atrial pressure, 10 mmHg. Aorta The aortic root size at the sinus of Valsalva is normal. There is mild-moderate aortic atherosclerosis. Left Ventricular Outflow Tract Name Value Normal LVOT 2D LVOT Diameter 1.9 cm LVOT Doppler
--- NOTE | 2022-12-10 | ECG_ITS ---
Measurements Intervals [place] Rate: 59 P: 79 [place]: 171 QRS: -43 QRSD: 118 T: -62 QT: 563 QTc: 559 Interpretive Statements SINUS BRADYCARDIA MARKED LEFT AXIS DEVIATION [QRS AXIS < -30] VOLTAGE EVIDENCE OF LEFT VENTRICULAR HYPERTROPHY INTRAVENTRICULAR CONDUCTION DELAY MARKED PRECORDIAL T-WAVE ABNORMALITY/CONSIDER ISCHEMIA PROLONGED QT INTERVAL ABNORMAL ECG COMPARED TO ECG 12/10/2022 08:57:31 SINUS RHYTHM REPLACES ATRIAL FIB AND QT IS PROLONGED Electronically Signed On 12-10-2022 17:10:15 CDT by Kleber Newton M.D.
[2022-12-10] MEDS: LEVALBUTEROL NEB 1.25 MG/3 ML INHALATION (02:20)
[2022-12-10] MEDS: AMIODARONE 360 MG/D5W 200 ML 360 MG/200 ML BAG 33.33 MG IV CONT (04:44)
[2022-12-10 05:09] LABS: Anion Gap 8 mmol/L (8-16); Blood Urea Nitrogen 25 mg/dL (7-17); Calcium 8.1 mg/dL (8.4-10.2); Carbon Dioxide 25 mmol/L (22-30); Chloride 100 mmol/L (98-107); Estimated CRCL calculation 33 ml/min; Estimated Glomerular Filt Rate 59; Glucose 123 mg/dL (65-110); Magnesium 1.9 mg/dL (1.6-2.3); Potassium 3.8 mmol/L (3.4-5.0); Sodium 133 mmol/L (137-145)
--- NOTE | 2022-12-10 08:01 | ECG_ITS ---
Measurements Intervals [place] Rate: 104 P: [place]: 0 QRS: -40 QRSD: 122 T: -50 QT: 408 QTc: 538 Interpretive Statements ATRIAL FIBRILLATION WITH RAPID VENTRICULAR RESPONSE MARKED LEFT AXIS DEVIATION [QRS AXIS < -30] MODERATE INTRAVENTRICULAR CONDUCTION DELAY [105+ ms QRS DURATION, 80+ ms Q/S IN V1/V2, NO Q AND 60+ ms R IN I/aVL/V5/V6] MODERATE VOLTAGE CRITERIA FOR LVH, CONSIDER NORMAL VARIANT [MEETS CRITERIA IN ONE OF: R(aVL), S(V1), R(V5), R(V5/V6)+S(V1)] COMPARED TO ECG 12/08/2022 17:27:14 VENTRICULAR RESPONSE TO THE ATRIAL FIBRILLATION IS MORE CONTROLLED Electronically Signed On 12-10-2022 16:53:56 CDT by Kleber Newton M.D.
[2022-12-10] MEDS: METOPROLOL TARTRATE 25 MG TABLET PO (08:32)
[2022-12-10] MEDS: LEVOTHYROXINE SODIUM 150 MCG TABLET PO (08:32)
[2022-12-10 09:49] LABS: Basophils Absolute Auto 0.1 K/mm3 (0.0-0.1); Eosinophils Absolute Auto 0.1 K/mm3 (0-0.3); Eosinophils Percent Auto 1.9 % (0-4.4); Hematocrit 33.6 % (37.0-47.0); Hemoglobin 10.3 g/dL (12.0-15.0); Immature Granulocyte Absolute 0.02 K/mm3 (0.00-0.031); Immature Granulocyte Percent A 0.3 % (0-0.5); Lymphocytes Absolute Auto 0.91 K/mm3 (0.9-3.2); Lymphocytes Percent Auto 13.5 % (18.3-44.2); Mean Corpuscular HGB Conc 30.7 g/dl (32-36); Mean Corpuscular Hemoglobin 27.4 pg (26-34); Mean Corpuscular Volume 89.4 fl (80-100); Mean Platelet Volume 11.9 fl (7.4-10.4); Monocytes Absolute Auto 0.8 K/mm3 (0.1-0.6); Monocytes Percent Auto 11.3 % (2.6-8.5); Neutrophils Absolute Auto 4.9 K/mm3 (1.3-6.7); Platelet Count Result 221 k/mm3 (150-375); Red Blood Count 3.76 M/mm3 (4.2-5.4); Red Cell Distribution Width 16.1 % (11.5-14.5); White Blood Count 6.7 K/mm3 (4.5-10.0)
--- NOTE | 2022-12-10 11:03 | PC.NURSE ---
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
--- NOTE | 2022-12-10 11:46 | WPDHPUPDATE1 ---
History and Physical Update Update Date/Time: 12/10/22 11:46 History and Physical has been reviewed, including an updated exam of the patient. There are NO changes in the patient's condition. Risks, benefits, and alternatives have been discussed and questions answered. Patient agrees to proceed with procedure.
--- NOTE | 2022-12-10 11:47 | WPDMODSED ---
Moderate Sedation Note-Pt Data Patient Data Diagnosis: Atrial fibrillation Present Complaint: None Procedure to be performed/Plan: Elective electrical cardioversion Allergies Allergy/AdvReac Type Severity Reaction Status Date / Time Sulfa (Sulfonamide Allergy Unknown Unknown Verified 12/08/22 17:57 Antibiotics) Home Medications Medication Instructions Recorded Confirmed Type levothyroxine 150 mcg tablet 150 mcg PO DAILY #30 tabs 11/30/21 12/08/22 Rx rivaroxaban 20 mg tablet (Xarelto) 20 mg PO DAILY #90 tabs 12/07/21 12/08/22 Rx alprazolam 0.25 mg tablet 0.25 mg PO TID PRN anxiety #80 tabs 11/02/22 12/08/22 Rx Current Medications: Active Medications Acetaminophen (Acetaminophen 325 Mg Tablet) 650 mg PO Q6H PRN PRN Reason: Mild Pain (1-3) or Fever Alprazolam (Alprazolam (*Crx) 0.25 Mg Tablet) 0.25 mg PO TID PRN PRN Reason: anxiety Last Admin: 12/09/22 19:27 Dose: 0.25 mg Amiodarone HCl/Dextrose (Nexterone 360 Mg/D5w 200 Ml) 360 mg in 200 mls @ 33.333 mls/hr IV CONT .Q6H BJ Last Admin: 12/10/22 04:44 Dose: 1 mg/min, 33.33 mls/hr Ceftriaxone Sodium (Rocephin 1 Gm/Ns 50 Ml) 1 gm in 50 mls @ 100 mls/hr IVPB HS [facility] Last Infusion: 12/09/22 23:57 Dose: Infused Levalbuterol HCl (Levalbuterol Neb 1.25 Mg/3 Ml) 1.25 mg INHALATION Q6HRT PRN PRN Reason: Wheezing Last Admin: 12/10/22 02:20 Dose: 1.25 mg Levothyroxine Sodium (Levothyroxine Sodium 150 Mcg Tablet) 150 mcg PO DAILY@0630 [facility] Last Admin: 12/10/22 08:32 Dose: 150 mcg Metoprolol Tartrate (Metoprolol Tartrate 25 Mg Tablet) 25 mg PO Q12HR BJ Last Admin: 12/10/22 08:32 Dose: 25 mg Perflutren Lipid Microsphere (Perflutren Lipid Microspheres 1.5 Ml Vial Diluted To 10 Ml Total Volume) 0 ml IV PUSH ONCE PRN; Protocol PRN Reason: adequate visualization Stop: 12/10/22 21:43 Rivaroxaban (Rivaroxaban 20 Mg Tablet) 20 mg PO DAILY@1700 BJ Last Admin: 12/09/22 17:59 Dose: 20 mg Sedation/Anesthesia: No previous sedation/anesthesia problems (including family history). [facility] Past Medical History Medical History Aortic stenosis Balance problems COVID-19 Dyslipidemia Generalized anxiety disorder Hypertension Hypothyroidism Iron deficiency Macular degeneration Paroxysmal atrial fibrillation Subarachnoid hemorrhage Surgical History Surgical History History of repair of left hip joint Family History Family History Mother Family history of Parkinson's disease Patient's mother is Sibling Family history of Parkinson's disease Family history of Alzheimer's disease Father Patient's father is Social History Social History Social History: Surrogate medical decision maker: Anabella Richardson. Code status: Full code. Smoking packs per day: 1 Smoking cigarettes per day: 20.0 Years smoked: 30 Smoking pack-years: 30.00 Smoking status: Former smoker Tobacco type: cigarettes Second hand tobacco smoke exposure: No Additional smoking assessment comments: Doesn't remember full smoking history Alcohol intake: current Drinks per week: 1 Alcohol use details: One beer perhaps every 5 months. Substance use: never Substance use type: does not use Lack of Transportation: No Lack of Food: Never True Current Housing: I Have Housing Concerned About Future Housing: No Difficulty Paying Gas/Electric Bills: No Difficulty Paying for Meds: No Currently Unemployed: No Education: High School Diploma/GED Difficulty w/ Childcare or Family Care: No Additional living arrangements comments: Lives with spouse. Spiritual care concerns: No Mod Sed Physical Exam Physical Exam Pre Procedural Exam: Normal: Appearance, Eyes, Ears, Nose, Nec
--- NOTE | 2022-12-10 12:21 | WPDCARDVER ---
Cardioversion Cardioversion Date of procedure: 12/10/22 Procedure: Elective electrical cardioversion Pre-op diagnosis: Atrial fibrillation Post-op diagnosis: Same Indications: Atrial fibrillation Description of procedure: Brief history present illness: Patient is a pleasant 87-year-old female with a history of paroxysmal atrial fibrillation amiodarone follow-up with Dr. Thakkar as an outpatient was admitted with complaints of feeling lethargic, more short of breath found to be in atrial fibrillation. She has been compliant with Xarelto without missing any doses particular the past 4 weeks but had been out of her amiodarone for the past couple weeks prior to admission. She remains in atrial fibrillation and is subsequently referred for elective electrical cardioversion in attempt to restore sinus rhythm. Procedure in detail: After verbal and written informed consent was obtained the patient risks, benefits, and alternatives explained in detail the patient agreed to proceed with the plan of care as outlined above. Patient was evaluated at bedside in the [facility] procedure room. On examination, neck was supple with normal range of motion, no restrictions to opening of the oral cavity, jaw angle and posterior hypopharynx was clear. Lungs were clear to auscultation. Patient was placed in appropriate 30 to 45 degree angle in a supine position. Patient was monitored throughout the study with telemetry, oxygen saturation, end-tidal CO2 monitoring, blood pressure, heart rate, and respirations. Anterior and posterior defibrillator pads placed in the appropriate positions. After confirmation of adequate sedation electrical cardioversion was carried out without complication. Patient tolerated the procedure well without difficulty. Sedation: Moderate Sedation/Anesthesia administration: Patient denied previous intolerance or complications with anesthesia/sedation. Please see sedation note for documentation of the pre-procedure physical examination. A total of 1mg intravenous Versed and a total of 50 mcg intravenous Fentanyl was utilized for moderate sedation. Sedation start time was 1240 and end time was 1245 for a total of 5 minutes [id number] intra-procedure time. Sedation was administered by a qualified observer Kindra Del Valle RN under my supervision with intra-procedure [id number] observation and management throughout the entirety of the procedure. There were no other issues or complications and patient tolerated the procedure well and sedation protocol well and I was present for the entirety. Findings: Elective electrical cardioversion: After confirmation of adequate sedation and persistence of atrial fibrillation, 200 joules synched biphasic energy x1 was delivered with immediate nondenominational of sinus rhythm. Twelve lead EKG was obtained postprocedure confirming sinus rhythm. Complications: None Conclusion: Successful nondenominational of sinus rhythm with 200 joules synched biphasic energy x1 without complication. Recommendations: Transition to oral amiodarone regimen. Continue systemic anticoagulation without interruption unless otherwise advised and particular the next 30 days post cardioversion.
--- NOTE | 2022-12-10 12:49 | PM.IMPN ---
Progress Note: A&P Assessment and Plan (1) Atrial fibrillation with rapid ventricular response: Code(s): I48.91 - Unspecified atrial fibrillation Status: Acute Assessment and Plan: Plan for cardioversion (2) Hypokalemia: Code(s): E87.6 - Hypokalemia Status: Acute (3) Prolonged prothrombin time (PT) and partial thromboplastin time (PTT): Code(s): R79.1 - Abnormal coagulation profile Status: Acute (4) Hypertension: Code(s): I10 - Essential (primary) hypertension Status: Acute (5) Hypothyroidism: Code(s): E03.9 - Hypothyroidism, unspecified Status: Acute Subjective Date/time seen: 12/10/22 12:49 Interval history: no complaints hr around 100 today denies cp Exam Narrative: General: Well-developed elderly female sitting up in bed in no acute distress. Weight: 64.4 kg. BMI: 24.4. HEENT: Wearing corrective lenses. PERRL, EOMI. Sclera anicteric. Oral mucosa moist. Neck: Supple. No JVD. Respiratory: Lungs are clear to auscultation bilaterally. Cardiovascular: Irregularly irregular rate and rhythm. Monitor shows AFib/RVR with rates between the 120s to 140s. Systolic murmur at the upper sternal border. Gastrointestinal: Abdomen is soft, nontender, and nondistended with positive bowel sounds. Skin: Warm and dry. No rash or lesions on limited exam. Extremities: No cyanosis or clubbing. 2+ ankle edema bilaterally. Radial and pedal pulses intact. Neurological: Alert. Cranial nerves 2-12 are grossly intact. Speech is clear. No gross focal deficits to casual conversation. Psychiatric: Pleasant and cooperative. She is a bit repetitive and slightly forgetful. Appropriate mood and affect. She is in good spirits. Objective Data Vital Signs Vital Signs: Vital Signs - 24 hr 12/09/22 16:00 12/09/22 14:00 12/09/22 16:00 Temperature Pulse Rate 133 H 119 H Respiratory Rate Blood Pressure Pulse Oximetry 97 Oxygen Delivery Room Air Oxygen Flow Rate Fraction of Inspired Oxygen 12/09/22 16:00 12/09/22 18:00 12/09/22 19:27 Temperature 96.4 F L Pulse Rate 127 H 137 H 135 H Respiratory Rate 20 Blood Pressure 143/95 H Pulse Oximetry 94 Oxygen Delivery Oxygen Flow Rate Fraction of Inspired Oxygen 12/09/22 19:41 12/09/22 20:07 12/09/22 20:00 Temperature 97.6 F Pulse Rate 135 H 127 H Respiratory Rate 20 18 Blood Pressure 142/95 H Pulse Oximetry 99 99 93 Oxygen Delivery Nasal Cannula Nasal Cannula Oxygen Flow Rate 2 2 Fraction of Inspired Oxygen 28 12/09/22 20:00 12/09/22 22:00 12/09/22 23:12 Temperature Pulse Rate 112 H 106 H 106 H Respiratory Rate 19 Blood Pressure Pulse Oximetry 99 Oxygen Delivery Nasal Cannula Oxygen Flow Rate 2 Fraction of Inspired Oxygen 12/09/22 23:27 12/09/22 23:27 12/10/22 00:25 Temperature Pulse Rate 106 H 106 H Respiratory Rate Blood Pressure Pulse Oximetry 91 Oxygen Delivery Nasal Cannula Oxygen Flow Rate 4 Fraction of Inspired Oxygen 36 12/10/22 00:00 12/10/22 00:00 12/10/22 02:00 Temperature 97.5 F L Pulse Rate 113 H 110 H 107 H Respiratory Rate 26 H Blood Pressure 127/84 Pulse Oximetry 99 Oxygen Delivery Oxygen Flow Rate Fraction of Inspired Oxygen 12/10/22 02:26 12/10/22 02:34 12/10/22 03:19 Temperature Pulse Rate 105 H 107 H 108 H Respiratory Rate 19 19 20 Blood Pressure Pulse Oximetry 100 Oxygen Delivery Nasal Cannula Oxygen Flow Rate 3 Fraction of Inspired Oxygen 12/10/22 04:00 12/10/22 04:44 12/10/22 04:00 Temperature 97.2 F L Pulse Rate 109 H 110 H 119 H Respiratory Rate 20 Blood Pressure 121/95 H Pulse Oximetry 100 Oxygen Delivery Oxygen Flow Rate Fraction of Inspired Oxygen 12/10/22 06:00 12/10/22 08:32 12/10/22 08:42 Temperature Pulse Rate 112 H 106 H Respiratory Rate Blood Pressure Pulse Oximetry 95 Ox
--- NOTE | 2022-12-10 13:34 | PM.IMPN ---
Progress Note: A&P Assessment and Plan (1) Atrial fibrillation with rapid ventricular response: Code(s): I48.91 - Unspecified atrial fibrillation Status: Acute Assessment and Plan: nsr after CV continue AC QTC prolonged after CV repeat ekg this afternoon and AM amiodarone gtt dc amiodarone po 400 bid x few days, then 400 daily x 2 weeks, then 200 daily (2) Hypokalemia: Code(s): E87.6 - Hypokalemia Status: Acute (3) Prolonged prothrombin time (PT) and partial thromboplastin time (PTT): Code(s): R79.1 - Abnormal coagulation profile Status: Acute (4) Hypertension: Code(s): I10 - Essential (primary) hypertension Status: Acute (5) Hypothyroidism: Code(s): E03.9 - Hypothyroidism, unspecified Status: Acute Subjective Date/time seen: 12/10/22 13:34 Interval history: no complaints Exam Const: General: comfortable and no acute distress; No confusion Orientation/consciousness: No confusion HENMT: Face/Nose/Sinus: Normal nares present Mouth: Yes moist mucous membranes Eyes: General: appearance normal, both eyes and all related structures Sclera: sclerae normal Neck: Neck: supple and no JVD Thyroid: thyroid normal Carotids: no bruits Chest: Other: No reproducible chest wall pain to palpation Resp: Effort & Inspection: normal respiratory effort Auscultation: clear to auscultation bilaterally Cardio: Rate: tachycardic Rhythm: abnormal rhythm irregularly irregular Heart sounds: no murmurs GI: Inspection: non-distended Auscultation: normal bowel sounds Skin: General skin exam: normal color Neuro: General: gait normal and No confusion Cranial nerves: Yes Normal hearing present Speech: normal speech Extrem: General: normal to inspection Psych: Mental Status: mental status grossly normal Affect: normal affect Objective Data Vital Signs Vital Signs: Vital Signs - 24 hr 12/09/22 16:00 12/09/22 14:00 12/09/22 16:00 Temperature Pulse Rate 133 H 119 H Respiratory Rate Blood Pressure Pulse Oximetry 97 Oxygen Delivery Room Air Oxygen Flow Rate Fraction of Inspired Oxygen 12/09/22 16:00 12/09/22 18:00 12/09/22 19:27 Temperature 96.4 F L Pulse Rate 127 H 137 H 135 H Respiratory Rate 20 Blood Pressure 143/95 H Pulse Oximetry 94 Oxygen Delivery Oxygen Flow Rate Fraction of Inspired Oxygen 12/09/22 19:41 12/09/22 20:07 12/09/22 20:00 Temperature 97.6 F Pulse Rate 135 H 127 H Respiratory Rate 20 18 Blood Pressure 142/95 H Pulse Oximetry 99 99 93 Oxygen Delivery Nasal Cannula Nasal Cannula Oxygen Flow Rate 2 2 Fraction of Inspired Oxygen 28 12/09/22 20:00 12/09/22 22:00 12/09/22 23:12 Temperature Pulse Rate 112 H 106 H 106 H Respiratory Rate 19 Blood Pressure Pulse Oximetry 99 Oxygen Delivery Nasal Cannula Oxygen Flow Rate 2 Fraction of Inspired Oxygen 12/09/22 23:27 12/09/22 23:27 12/10/22 00:25 Temperature Pulse Rate 106 H 106 H Respiratory Rate Blood Pressure Pulse Oximetry 91 Oxygen Delivery Nasal Cannula Oxygen Flow Rate 4 Fraction of Inspired Oxygen 36 12/10/22 00:00 12/10/22 00:00 12/10/22 02:00 Temperature 97.5 F L Pulse Rate 113 H 110 H 107 H Respiratory Rate 26 H Blood Pressure 127/84 Pulse Oximetry 99 Oxygen Delivery Oxygen Flow Rate Fraction of Inspired Oxygen 12/10/22 02:26 12/10/22 02:34 12/10/22 03:19 Temperature Pulse Rate 105 H 107 H 108 H Respiratory Rate 19 19 20 Blood Pressure Pulse Oximetry 100 Oxygen Delivery Nasal Cannula Oxygen Flow Rate 3 Fraction of Inspired Oxygen 12/10/22 04:00 12/10/22 04:44 12/10/22 04:00 Temperature 97.2 F L Pulse Rate 109 H 110 H 119 H Respiratory Rate 20 Blood Pressure 121/95 H Pulse Oximetry 100 Oxygen Delivery Oxygen Flow Rate Fraction of Inspired Oxygen 12/10/22 06:00 12/10/22 08:3
--- NOTE | 2022-12-10 13:43 | PC.NURSE ---
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 No issues noted
--- NOTE | 2022-12-10 15:11 | ECG_ITS ---
Measurements Intervals [place] Rate: 65 P: 87 CO: 162 QRS: -41 QRSD: 126 T: -51 QT: 575 QTc: 602 Interpretive Statements SINUS RHYTHM WITH OCCASIONAL SUPRAVENTRICULAR PREMATURE COMPLEXES MARKED LEFT AXIS DEVIATION [QRS AXIS < -30] VOLTAGE EVIDENCE OF LEFT VENTRICULAR HYPERTROPHY INTERVENTRICULAR CONDUCTION DELAY PRECORDIAL T-WAVE ABNORMALITY/CONSIDER ISCHEMIA PROLONGED QT INTERVAL ABNORMAL ECG COMPARED TO ECG 12/10/2022 12:52:16 NO DIFFERENCE Electronically Signed On 12-10-2022 17:18:26 CDT by Kleber Newton M.D.
--- NOTE | 2022-12-10 15:49 | PC.NURSE ---
Addendum entered by Dionne Ferguson RN 12/10/22 15:49: Notified Dr. Ackerman of repeat EKG w/ QTc still prolonging. New order to stop Amiodarone gtt, change PO Amiodarone to 400mg daily. Hold PO Amiodarone and PO Metoprolol until re-evaluated by cardiology tomorrow. Repeat EKG in AM Original Note: Spoke with Dr. erickson
[2022-12-10] MEDS: RIVAROXABAN 20 MG TABLET PO (17:04)
[2022-12-10 18:13] LABS: Anion Gap 7 mmol/L (8-16); Blood Urea Nitrogen 25 mg/dL (7-17); Calcium 8.3 mg/dL (8.4-10.2); Carbon Dioxide 29 mmol/L (22-30); Chloride 99 mmol/L (98-107); Estimated CRCL calculation 33 ml/min; Estimated Glomerular Filt Rate 59; Glucose 111 mg/dL (65-110); Potassium 3.8 mmol/L (3.4-5.0); Sodium 135 mmol/L (137-145)
[2022-12-10 18:23] LABS: Troponin I < 0.012 ng/mL (0.000-0.034)
--- NOTE | 2022-12-10 19:37 | PC.NURSE ---
Updated Jennyfer DUONG regarding preliminary urine culture and current antibiotic. No change at this time needed.
[2022-12-10] MEDS: ALPRAZolam (*CRX) 0.25 MG TABLET PO (21:30)
[2022-12-11] VITALS (10 sets, daily range): BP systolic 136–152; BP diastolic 63–96; PULSE 67–81; RESP 18–20; TEMP 36.3–37.1; O2SAT 92–97
[2022-12-11] MEDS: LEVOTHYROXINE SODIUM 150 MCG TABLET PO (04:54)
--- NOTE | 2022-12-11 08:00 | ECG_ITS ---
Measurements Intervals [place] Rate: 72 P: 84 NV: 167 QRS: -37 QRSD: 117 T: -51 QT: 496 QTc: 545 Interpretive Statements SINUS RHYTHM WITH FREQUENT SUPRAVENTRICULAR PREMATURE COMPLEXES MARKED LEFT AXIS DEVIATION [QRS AXIS < -30] MODERATE INTRAVENTRICULAR CONDUCTION DELAY [105+ ms QRS DURATION, 80+ ms Q/S IN V1/V2, NO Q AND 60+ ms R IN I/aVL/V5/V6] VOLTAGE CRITERIA FOR LVH [MEETS CRITERIA IN ONE OF: R(aVL), S(V1), R(V5), R(V5/V6)+S(V1)] MARKED T-WAVE ABNORMALITY, CONSIDER ANTEROLATERAL ISCHEMIA [-0.5+ mV T WAVE IN I/aVL/V3-V6] MODERATE T-WAVE ABNORMALITY, CONSIDER INFERIOR ISCHEMIA [-0.1+ mV T WAVE IN II/aVF] COMPARED TO ECG 12/10/2022 15:29:26 NO SIGNIFICANT CHANGES Electronically Signed On 12-11-2022 14:40:11 CDT by Radha Lackey M.D.
--- NOTE | 2022-12-11 11:40 | PM.PNCARD ---
Progress Note: A&P Assessment and Plan (1) Atrial fibrillation with RVR: Code(s): I48.91 - Unspecified atrial fibrillation Status: Acute Assessment and Plan: S/p DCCV yesterday with protestant of sinus rhythm. Unable to continue amiodarone because of prolonged QTc after procedure. While amiodarone certainly can prolong QT interval, risk for ventricular arrhythmias as a direct function in this regard is generally low (unless QT is significantly prolonged as it is in this case). As such, will discontinue metoprolol to avoid bradycardia which may further prolong QT and hold amiodarone for now. Unfortunately, this may certainly increased risk for recurrence of atrial fibrillation, however, given significant QT prolongation and history of torsades must avoid any and all other medications which may prolonged QT interval. Patient increased risk for ventricular arrhythmia including torsades. BMP stable today, however K+ and Mag both slightly below goal (3.6 and 1.8, respectively). Will give 20 mEq KCL and 2gm mag before discharge. BMP in one week as outpatient. (2) Hypokalemia: Code(s): E87.6 - Hypokalemia Status: Acute Assessment and Plan: As above (3) Anticoagulation adequate with anticoagulant therapy: Code(s): Z79.01 - MCFP (current) use of anticoagulants Status: Acute Assessment and Plan: Continue Xarelto (4) Adult hypothyroidism: Code(s): E03.9 - Hypothyroidism, unspecified Status: Acute Assessment and Plan: Continue levothyroxine (5) Essential (primary) hypertension: Code(s): I10 - Essential (primary) hypertension Status: Acute Assessment and Plan: Near goal for age Subjective Date/time seen: 12/11/22 11:40 Interval history: Cardiology follow up for atrial fibrillation Feeling well today. Remains in sinus rhythm predominately but does have frequent APC's, last night had some brief Atach. No complaints today. Review of Systems Review of Systems: All systems reviewed & are unremarkable except as noted in HPI and below Constitutional: Constitutional: Denies body ache(s) and Denies excessive sweating Eyes: Eyes: Reports blurry vision ENT: Reports Normal hearing present Cardiovascular: Cardiovascular: Denies chest pain, Reports lightheadedness and Reports dyspnea on exertion Respiratory: Respiratory: Denies chest congestion and Reports dyspnea on exertion Gastrointestinal: Gastrointestinal: Denies abdominal pain Genitourinary: Genitourinary: Denies hematuria Musculoskeletal: Musculoskeletal: Denies back pain Integumentary/Breasts: Skin/Breast: Denies erythema Neurologic: Reports Normal hearing present, Denies behavioral changes and Denies confusion Psychiatric: Psychiatric: Denies anxiety, Denies behavioral changes and Denies confusion Endocrine: Endocrine: Denies excessive sweating Hematologic/Lymphatic: Hematologic/Lymphatic: Denies easy bleeding Allergic/Immunologic: Allergic/Immunologic: Denies GI upset with certain foods Exam Narrative: Awake alert oriented times 3. Appears stated age Const: General: comfortable and no acute distress; No confusion Orientation/consciousness: No confusion HENMT: Face/Nose/Sinus: Normal nares present Mouth: Yes moist mucous membranes Eyes: General: appearance normal, both eyes and all related structures Sclera: sclerae normal Neck: Neck: supple and no JVD Thyroid: thyroid normal Carotids: no bruits Chest: Other: No reproducible chest wall pain to palpation Resp: Effort & Inspection: normal respiratory effort Auscultation: clear to auscultation bilaterally Cardio: Rate: regular rate Rhythm: regular rhythm Heart sounds: no murmurs GI: Inspection: non-distended Auscultation: normal bowel sounds Skin: General skin exam: normal color Neuro: General: gait normal and No confusion Cranial nerves: Yes Normal hearing present Speec
--- NOTE | 2022-12-11 11:42 | PM.DS ---
DS: Admitting Diagnosis Discharge Date December 11, 2022 Admitting Diagnosis AFib RVR DS: Discharge Diagnosis Discharge Diagnosis (1) Atrial fibrillation with rapid ventricular response: Code(s): I48.91 - Unspecified atrial fibrillation Status: Acute Assessment and Plan: nsr after CV continue AC QTC prolonged after CV (2) Hypokalemia: Code(s): E87.6 - Hypokalemia Status: Acute (3) Prolonged prothrombin time (PT) and partial thromboplastin time (PTT): Code(s): R79.1 - Abnormal coagulation profile Status: Acute (4) Hypertension: Code(s): I10 - Essential (primary) hypertension Status: Acute (5) Hypothyroidism: Code(s): E03.9 - Hypothyroidism, unspecified Status: Acute DS: Summary Hospital Course Hospital Course: Admitted for AFib RVR. Medications were adjusted and patient underwent cardioversion. She is now sinus rhythm. She does have QTC prolongation after procedure. Beta-blockers and amiodarone will be held on discharge. Continue anticoagulation. Follow-up with Cardiology Time Spent with Patient Time attestation: Total time spent providing and/or coordinating discharge services: Exam Const: General: comfortable and no acute distress; No confusion Orientation/consciousness: No confusion HENMT: Face/Nose/Sinus: Normal nares present Mouth: Yes moist mucous membranes Eyes: General: appearance normal, both eyes and all related structures Sclera: sclerae normal Neck: Neck: supple and no JVD Thyroid: thyroid normal Carotids: no bruits Chest: Other: No reproducible chest wall pain to palpation Resp: Effort & Inspection: normal respiratory effort Auscultation: clear to auscultation bilaterally Cardio: Rate: tachycardic Rhythm: abnormal rhythm irregularly irregular Heart sounds: no murmurs GI: Inspection: non-distended Auscultation: normal bowel sounds Skin: General skin exam: normal color Neuro: General: gait normal and No confusion Cranial nerves: Yes Normal hearing present Speech: normal speech Extrem: General: normal to inspection Psych: Mental Status: mental status grossly normal Affect: normal affect DS: Data Data Completed and Pending Labs on day of discharge: Labs from last 24 hours 12/10/22 17:42 Sodium 135 L Potassium 3.8 Chloride 99 Carbon Dioxide 29 Anion Gap 7 L BUN 25 H Creatinine 0.90 Estim Creat Clear Calc 33 Estimated GFR 59 Glucose 111 H Calcium 8.3 L Troponin I < 0.012 Preliminary micro results at discharge 12/09/22 04:11 Urine Culture - Preliminary Urine Clean Catch Escherichia Coli Discharge Plan Discharge Attending physician on discharge: Kleber Garcia Consulting providers: Anthony Thakkar Discharging Clinician: Kleber Garcia Patient Disposition: Home, Self-Care Activity: as tolerated Diet: as tolerated Patient Instructions: Antibiotic Form, Rivaroxaban (By mouth) Stand Alone Forms: General Discharge Information Follow-up/Referrals: Anthony Thakkar MD [Physician] - Discharge Medications: Continued levothyroxine 150 mcg tablet 150 mcg PO DAILY Qty: 30 0RF Xarelto 20 mg tablet 20 mg PO DAILY Qty: 90 1RF Patient Comments: States has been taking samples from Dr. Thakkar Rx Instructions: must administer with evening meal alprazolam 0.25 mg tablet 0.25 mg PO TID PRN (Reason: anxiety) Qty: 80 0RF Date of admission: 12/09/22 16:27 Primary Care Provider: Kyle Calderón Admitting Provider: Mel Shankar V. Attending physician on admission: Mel Shankar V. Condition: Guarded Prognosis
[2022-12-11 12:11] LABS: Anion Gap 3 mmol/L (8-16); Blood Urea Nitrogen 23 mg/dL (7-17); Calcium 8.3 mg/dL (8.4-10.2); Carbon Dioxide 32 mmol/L (22-30); Chloride 100 mmol/L (98-107); Estimated CRCL calculation 33 ml/min; Estimated Glomerular Filt Rate 59; Glucose 82 mg/dL (65-110); Magnesium 1.8 mg/dL (1.6-2.3); Potassium 3.6 mmol/L (3.4-5.0); Sodium 135 mmol/L (137-145)
[2022-12-11] MEDS: MAGNESIUM SULF 2 GM/WATER 50ML 2 GM/50 ML BAG IVPB (15:33)
[2022-12-11] MEDS: POTASSIUM CHLORIDE 20 MEQ PACKET (FOR LIQUID) PO (15:33)
[2022-12-11] MEDS: RIVAROXABAN 20 MG TABLET PO (16:20)
== END 2022-12-11 16:40 | disposition home health service (06) | DRG 309 ==
LOC: ANHED 18:53 → ANHIMU 19:50
PROVIDERS: Internal Medicine Cardiovascular Disease; Nurse Practitioner; Physician Assistant; Admitting Provider Internal Medicine; Emergency Provider Preventive Medicine Aerospace Medicine; PCP Family Medicine; Visit Provider Chiropractor
PROC: 5A2204Z Restoration of Cardiac Rhythm, Single (ICD-10-PCS; principal; 2022-12-10 10:30)
DX: I48.0 Paroxysmal atrial fibrillation (principal); N39.0 Urinary tract infection, site not specified; I10 Essential (primary) hypertension; I35.0 Nonrheumatic aortic (valve) stenosis; E87.6 Hypokalemia; E87.70 Fluid overload, unspecified; E03.9 Hypothyroidism, unspecified; E78.5 Hyperlipidemia, unspecified; D64.9 Anemia, unspecified; R94.31 Abnormal electrocardiogram [ECG] [EKG]; R79.1 Abnormal coagulation profile; R06.03 Acute respiratory distress; F41.1 Generalized anxiety disorder; H35.30 Unspecified macular degeneration; Z79.01 Long term (current) use of anticoagulants; Z87.891 Personal history of nicotine dependence
CPT/HCPCS: 36415; 36600; 71045; 80048; 80053; 81001; 82375; 82805; 82948; 83050; 83690; 83735; 84439; 84443; 84480; 84484; 85025; 85380; 85610; 85730; 87077; 87086; 87186; 92960; 93005; 93306; 94640; 96361; 96365; 96366; 96367; 96376; 97161; 97166; 99285; A9270; G0378; J0282; J0696; J1940; J2250; J2270; J3010; J3475; J7030; J7040

== ENCOUNTER 2022-12-14 10:01 | Observation (INO) | payer MEDICARE, SELFPAY ==
[2022-12-14] VITALS (32 sets, daily range): BP systolic 132–168; BP diastolic 89–128; PULSE 120–154; RESP 18–40; TEMP 36.2–37.1; O2SAT 80–99; BMI 24.9
--- NOTE | ~2022-12-14 | XR_ITS ---
EXAMINATION: XR chest 2V DATE: 12/14/2022 10:54 INDICATION: Shortness of breath, hypertension TECHNIQUE: Frontal and lateral views of the chest are obtained COMPARISON: 12/09/2012 FINDINGS: Small pleural effusions persist with slight improvement. There are persistent but improved airspace opacities of the mid and lower lung zones. Cardiomegaly is noted. There is no pneumothorax. A mild diffuse interstitial pattern persists but has improved. There is moderate thoracic spondylosis . Calcified atherosclerosis is noted. IMPRESSION: 1. Small pleural effusions, improved. 2. Improving airspace opacities of the mid and lower lung zones, consistent with atelectasis versus p neumonia. 3. Cardiomegaly with improved pulmonary edema. Reviewed, dictated and finalized at location B. IMPRESSION: 1. Small pleural effusions, improved. 2. Improving airspace opacities of the mid and lower lung zones, consistent wit h atelectasis versus pneumonia. 3. Cardiomegaly with improved pulmonary edema.
--- NOTE | 2022-12-14 10:04 | ECG_ITS ---
Measurements Intervals [place] Rate: 151 P: [place]: 0 QRS: -41 QRSD: 108 T: 139 QT: 286 QTc: 454 Interpretive Statements ATRIAL FIBRILLATION WITH RAPID VENTRICULAR RESPONSE MARKED LEFT AXIS DEVIATION [QRS AXIS < -30] VOLTAGE CRITERIA FOR LVH [MEETS CRITERIA IN ONE OF: R(aVL), S(V1), R(V5), R(V5/V6)+S(V1)] INTRAVENTRICULAR CONDUCTION DELAY T-WAVE ABNORMALITY/CONSIDER ANTERIOR ISCHEMIA ABNORMAL ECG COMPARED TO ECG 12/11/2022 09:25:28 ATRIAL FIBRILLATION REPLACES SINUS RHYTHM Electronically Signed On 12-14-2022 15:55:13 CDT by Kleber Newton M.D.
[2022-12-14 10:29] LABS: Basophils Absolute Auto 0.1 K/mm3 (0.0-0.1); Basophils Percent Auto 1.4 % (0.2-1.2); Eosinophils Absolute Auto 0.3 K/mm3 (0-0.3); Eosinophils Percent Auto 4.8 % (0-4.4); Hematocrit 35.9 % (37.0-47.0); Hemoglobin 10.8 g/dL (12.0-15.0); Immature Granulocyte Absolute 0.02 K/mm3 (0.00-0.031); Immature Granulocyte Percent A 0.3 % (0-0.5); Lymphocytes Absolute Auto 1.04 K/mm3 (0.9-3.2); Lymphocytes Percent Auto 16.3 % (18.3-44.2); Mean Corpuscular HGB Conc 30.1 g/dl (32-36); Mean Corpuscular Hemoglobin 26.7 pg (26-34); Mean Corpuscular Volume 88.6 fl (80-100); Mean Platelet Volume 10.3 fl (7.4-10.4); Monocytes Absolute Auto 0.7 K/mm3 (0.1-0.6); Monocytes Percent Auto 10.6 % (2.6-8.5); Neutrophils Absolute Auto 4.3 K/mm3 (1.3-6.7); Neutrophils Percent Auto 66.6 % (45.5-73.1); Platelet Count Result 248 k/mm3 (150-375); Red Blood Count 4.05 M/mm3 (4.2-5.4); Red Cell Distribution Width 15.9 % (11.5-14.5); White Blood Count 6.4 K/mm3 (4.5-10.0)
[2022-12-14 10:42] LABS: Alanine Aminotransferase 34 U/L (6-35); Albumin Level 3.8 g/dL (3.5-5.1); Alkaline Phosphatase 74 U/L (38-126); Anion Gap 8 mmol/L (8-16); Aspartate Amino Transferase 32 U/L (14-36); Bilirubin,Total 0.8 mg/dL (0.2-1.3); Blood Urea Nitrogen 25 mg/dL (7-17); Calcium 8.6 mg/dL (8.4-10.2); Carbon Dioxide 29 mmol/L (22-30); Chloride 102 mmol/L (98-107); Estimated CRCL calculation 30 ml/min; Estimated Glomerular Filt Rate 47; Glucose 101 mg/dL (65-110); Potassium 4.4 mmol/L (3.4-5.0); Sodium 139 mmol/L (137-145)
[2022-12-14] MEDS: METOPROLOL TARTRATE INJ 5 MG/5 ML VIAL IV PUSH ×2 (10:58→11:32)
[2022-12-14 11:06] LABS: Magnesium 1.8 mg/dL (1.6-2.3)
[2022-12-14 11:08] LABS: INR 1.7; Prothrombin Time 21.1 Seconds (11.1-14.7)
[2022-12-14 11:10] LABS: Partial Thromboplastin Time 36.2 SECONDS (22.3-36.8)
[2022-12-14 11:10] LABS: Alveolar/Arterial O2 Gradient 39.4 mmHg; Base Excess ABG 1.6 mEq/l (+/-2.0); Carboxyhemoglobin 0.6 % THb (0-2.0); Fractional Inspired Oxygen 21 %; HCO3 ABG 26.3 mEq/l (22.0-26.0); Methemoglobin ABG 0.3 %THb (0-1.5); Oxygen Content ABG 14.1 %vol (16.0-22.0); Oxygen Saturation ABG 91.4 % (95.0-100.0); Oxyhemoglobin 90.1 % THb (90.0-100.0); PCO2 ABG 41.9 mmHg (35.0-45.0); PO2 ABG 60.2 mmHg (80.0-100.0); PO2 FiO2 Ratio Arterial Blood 2.87 %; Total Hemoglobin 11.1 g/dL (12.0-18.0); pH ABG 7.416 (7.350-7.450)
[2022-12-14 11:11] LABS: Site Drawn RIGHT BRACHIAL
[2022-12-14] MEDS: METOPROLOL TARTRATE 50 MG TAB 25 MG PO (11:15)
[2022-12-14 11:17] LABS: NT Pro B Type Natriuretic Pept 6630 pg/mL (19.9-100); Troponin I < 0.012 ng/mL (0.000-0.034)
--- NOTE | 2022-12-14 11:44 | ED.SOB ---
HPI - SOB/Dyspnea General Chief Complaint: Shortness of Breath/Dyspnea Stated Complaint: Hx of Afib - SOB and weakness Time Seen by Provider: 12/14/22 10:15 Source: patient, family, RN notes reviewed and old records reviewed Mode of arrival: wheelchair Limitations: other (poor historian) History of Present Illness HPI Narrative: This is an 87 year old female with history of atrial fibrillation with RVR And hypothyroid disease who presents for evaluation of elevated heart rate. Her daughter in law is at bedside to help provide history. She reports patient was discharged on Saturday after hospitalization for treatment of atrial fibrillation. During that visit, patient was placed on diltiazem infusion with minimal improvement. She was on amiodarone and she had cardioversion performed. IT appears she converted to sinus and she was discharged home. She was not discharged on any medication for rate control. She was taking amiodarone and metoprol prior to previous hospitalization but she was taken off due to QT prolongation and history of Torsades in the past. Patient daughter in law reports patient pulse seemd irregular after discharge . Today she found patient short of breath and breathing 4 0 times a minute and she had an elevated heart rate. PAtient is poor historian. She denies chest pain, nausea, vomiting cough, fever. She reports intermittent shortness of breath but she denies shortness of breath at rest. Related Data Allergies Allergy/AdvReac Type Severity Reaction Status Date / Time Sulfa (Sulfonamide Allergy Unknown Unknown Verified 12/14/22 10:09 Antibiotics) Review of Systems Constitutional: Constitutional: Reports weakness Cardiovascular: Cardiovascular: Denies syncope, Denies rapid heart rate, Denies irregular heart rhythm, Denies leg edema and Denies dyspnea Respiratory: Respiratory: Denies chest congestion, Denies hemoptysis, Denies excessive phlegm production and Reports dyspnea Gastrointestinal: Gastrointestinal: Denies abdominal pain, Denies hematochezia, Denies diarrhea and Denies vomiting Genitourinary: Genitourinary: Denies hematuria and Denies dysuria Musculoskeletal: Musculoskeletal: Denies joint swelling, Denies loss of height and Denies muscle weakness Neurologic: Denies syncope, Denies focal weakness and Denies weakness [facility] Past Medical History Medical History Aortic stenosis Valve area of 0.8 cm2 on echo 12/16/2022. Balance problems COVID-19 Dyslipidemia Generalized anxiety disorder Heart failure with reduced ejection fraction Echocardiogram on 12/10/2022 showed severely reduced LV systolic function with an estimated EF 25%, reduced RV systolic function, mild pulmonary hypertension, and moderate to severe aortic valve stenosis. Hypertension Hypothyroidism Iron deficiency Macular degeneration Paroxysmal atrial fibrillation Subarachnoid hemorrhage Surgical History Surgical History History of repair of left hip joint Family History Family History Mother Family history of Parkinson's disease Patient's mother is Sibling Family history of Parkinson's disease Family history of Alzheimer's disease Father Patient's father is Social History Social History Social History: Surrogate medical decision maker: Anabella Richardson. Code status: Full code. Smoking packs per day: 1 Smoking cigarettes per day: 20.0 Years smoked: 30 Smoking pack-years: 30.00 Smoking status: Former smoker Second hand tobacco smoke exposure: No Additional smoking assessment comments: Doesn't remember full smoking history Alcohol intake: current Drinks per week: 1 Alcohol use details: One beer perhaps every 5 months. Substance use: never
--- NOTE | 2022-12-14 12:52 | P.HP_ITS ---
H&P: HPI History of Present Illness Date/Time: 12/14/22 18:00 Chief Complaint: Racing heart and shortness of breath. Narrative: -T-h-i-s- -i-s- -a- -f-c-f-a-s-a-n-t- -8-7---x-j-p-r---o-l-d- -f-p-z-a-l-e- -w-i-t-h- -h-e-a-r-t- -c-w-y-l-u-r-e- -w-i-t-h- -q-p-u-u-c-e-d- -u-y-w-c-t-i-o-n- -g-u-y-c--t-i-o-n- -o-f- -2-5-%- -o-n- -i-e-b-e-n-t- -e-l-b-b-o-p-v-m-p-o-g-r-a-m-,- -w-t-n-e-r-a-t-e- -t-o- -t-l-l-e-r-e- -c-j-d-t-i-c- -v-a-l-v-e- -j-b-v-n-o-s-i-s-,- -o-c-x-t-e-b-s-m-a-l- -z-c-x-i-a-l- -m-j-e-t-b-e-c-m-v-i-o-n- -o-n- -z-n-n-o-n-i-c- -a-y-x-m-o-n-g-u-c-w-n-q-i-o-n-,- -f-q-x-f-f-n-o-f-p-i-d-i-s-m-,- -g-b-k-a-t-p-o-f-q-i-o-n-,- -a-n-d- -o-t-h-e-r- -u-y-l-w-b-h-e-o-x-t-i-e-s- -w-h-o- -b-j-r--w-n-g-t-e-d- -t-o- -t-h-e- -b-x-n-n-b-b-n-c-y- -d-l-e-p-q-g-m-e-n-t- -v-i-a- -w-m-j-v-a-t-e- -x-l-f-i-c-l-e- -f-r-o-m- -h-o-m-e- -f-o-r- -p-r-c-c-o-b-t-i-o-n- -o-f- -x-m-m-l-k-r-q-h-y-o-n-s-.- -T-h-e- -b-u-f-i-e-n-t- -d-q-p-v-i-d-e-s- -t-h-e- -s-t-x-o-n-a-i-n-g- -y-e-y-t-o-r-y-.- -S-h-e- -h-a-s- -n-o-t- -b-e-e-n- -f-k-a-l-i-n-g- -w-e-l-l- -f-o-r- -a-b-o-u-t- -6- -d-a-y-s- -w-i-t-h- -k-g-u-i-g-u-e- -a-n-d- -c-w-p-p-d-e-z-m-t-e-n-t- -b-u-w-w-t-y-i-o-n-s- -o-f- -t-j-m-i-n-g- -h-e-a-r-t- -a-n-d- -d-u-o-z-x-z-t-m-c-o-n-s-,- -w-o-r-s-e- -a-t- -e-w-i-t-a-y-i-m-e-.- -T-o-d-a-y- -s-h-e- -a-a-p-r-t-e-d- -t-o- -f-e-e-l- -a- -b-i-t- -s-h-o-r-t- -o-f- -o-h-g-a-t-h- -a-n-d- -m-w-u-i-c-e-d- -t-h-a-t- -h-e-r- -f-e-e-t- -w-e-r-e- -f-u-z-l-l-i-n-g- -a-n-d- -s-h-e- -e-c-n-i-d-e-d- -t-o- -c-o-m-e- -i-n- -f-o--r- -q-j-p-k-a-i-t-i-o-n-.- -S-h-e- -w-a-s- -i-n- -u-b-j-i-a-l- -i-t-g-j-b-v-y-k-o-i-o-n- -w-i-t-h- -r-a-p-i-d- -s-j-y-x-l-i-c-u-l-a-r- -j-y-m-p-o-n-s-e- -o-n- -d-r-s-i-v-a-l- -t-o- -t-h-e- -E-D- -w-i-t-h- -a- -h-e-a-r-t- -r-a-t-e- -o-f- -1-6-6-.- -B-l-o-o-d- -f-c-c-y-b-k-r-e-s- -h-a-v-e- -k-e-f-a-i-n-e-d- -w-q-a-b-l-e-.- -L-a-b-s- -w-e-r-e- -w-n-m-v-t-o-i-c-a-n-t- -f-o-r- -a- -c-d-h-o-n-i-c- -a-n--d- -s-j-d-b-l-e- -u-n-l-m-i-a-,- -h-a-k-m-c-l-i-u-m- -o-f- -3-.-2-,- -a-n-d- -a- -v-x-v-r-y-p-n-i-n-e- -o-f- -1-.-1-0- -w-h-i-c-h- -i-s- -u-p- -a- -s-k-x-t-l-e- -b-i-t- -f-r-o-m- -h-e-r- -g-o-q-e-l-i-n-e-.- -R-x-u-t-i-a-l- -q-x-q-p-o-n-i-n- -w-a-s- -k-w-w-a-t-i-v-e-.- -D----d-i-m-e-r- -w-a-s- -f-z-b-a-t-i-v-e- -w-h-e-n- -t-t-r-u-s-t-e-d- -f-o-r- -a-g-e-.- -S-h-e- -w-a-s- -q-h-h-r-t-e-d- -o-n- -a- -n-i-f-g-d-m-z-e-m- -d-r-i-p- -l-u-w-h-o-u-t- -m-u-c-h- -z-b-d-s-s-e-e-m-e-n-t- -a-n-d- -s-h-e- -h-a-s- -s-i-n-c-e- -b-e-e-n- -z-r-h-x-g-o-q-s-t-n-e-d- -t-o- -a-n- -l-u-p-d-w-e-r-o-n-e- -d-r-i-p-.- -S-h-e- -i-s- -b-e-i-n-g- -g-o-t-i-t-t-e-d- -i-n- -t-h-i-s- -q-c-k-t-i-n-g- -f-o-r- -t-s-z-t-h-e-r- -r-u-k-c-w-e-e-n-t- -a-n-d- -y-n-l-q-l-j-t-i-o-n-.- -S-h-e- -s-g-b-i-e-s- -g-e-d-c-o-p-e-,- -n-e-a-r- -t-u-n-c-o-p-e-,- -c-h-e-s-t- -p-a-i-n-,- -t-t-s-p-h-y-t-i-c- -p-a-i-n-,- -f-k-n-s-e-a-,- -a-n-d- -u-a-i-i-t-i-n-g-.- -S-h-e- -e-j-i-t-e-s- -m-j-u-i-h-r-a-n-c-e- -w-i-t-h- -h-e-r- -h-o-m-e- -p-w-l-p-w-w-t-i-o-n-s-.- -S-h-e- -s-a-k-n-k-s- -a-p-c-h-a-p-s- -2- -c-u-p-s- -o-f- -f-a-h-f-e-e- -a- -d-a-y-,- -r-a-r-e- -q-y-i-o-h-o-l- -a- -f-e-w- -t-i-m-e-s- -a- -y-e-a-r-.- -K-c-l-i-e-s- -e-j-j-t-o-r-y- -o--f- -w-e-r-e- -g-x-n-c-e-r-n-s- -f-o-r- -s-l-e-e-p- -a-p-n-e-a-.- [facility] Past Medical History Medical History Aortic stenosis Valve area of 0.8 cm2 on echo 12/16/2022. Balance problems COVID-19 Dyslipidemia Generalized anxiety disorder Heart failure with reduced ejection fraction Echocardiogram on 12/10/2022 showed severely reduced LV systolic function with an estimated EF 25%, reduced RV systolic function, mild pulmonary hypertension, and moderate to severe aortic valve stenosis. Hypertension Hypothyroidism Iron deficiency
--- NOTE | 2022-12-14 12:52 | PM.IMHP ---
H&P: HPI History of Present Illness Date/Time: 12/14/22 18:00 Chief Complaint: Racing heart and shortness of breath. Narrative: <del>This</del> <del>is</del> <del>a</del> <del>pleasant</del> <del>87-year-old</del> <del>female</del> <del>with</del> <del>heart</del> <del>failure</del> <del>with</del> <del>reduced</del> <del>ejection</del> <del>fraction</del> <del>of</del> <del>25%</del> <del>on</del> <del>recent</del> <del>echocardiogram,</del> <del>moderate</del> <del>to</del> <del>severe</del> <del>aortic</del> <del>valve</del> <del>stenosis,</del> <del>paroxysmal</del> <del>atrial</del> <del>fibrillation</del> <del>on</del> <del>chronic</del> <del>anticoagulation,</del> <del>hypothyroidism,</del> <del>hypertension,</del> <del>and</del> <del>other</del> <del>comorbidities</del> <del>who</del> <del>presented</del> <del>to</del> <del>the</del> <del>emergency</del> <del>department</del> <del>via</del> <del>private</del> <del>vehicle</del> <del>from</del> <del>home</del> <del>for</del> <del>evaluation</del> <del>of</del> <del>palpitations.</del> <del>The</del> <del>patient</del> <del>provides</del> <del>the</del> <del>following</del> <del>history.</del> <del>She</del> <del>has</del> <del>not</del> <del>been</del> <del>feeling</del> <del>well</del> <del>for</del> <del>about</del> <del>6</del> <del>days</del> <del>with</del> <del>fatigue</del> <del>and</del> <del>intermittent</del> <del>sensations</del> <del>of</del> <del>racing</del> <del>heart</del> <del>and</del> <del>palpitations,</del> <del>worse</del> <del>at</del> <del>nighttime.</del> <del>Today</del> <del>she</del> <del>started</del> <del>to</del> <del>feel</del> <del>a</del> <del>bit</del> <del>short</del> <del>of</del> <del>breath</del> <del>and</del> <del>noticed</del> <del>that</del> <del>her</del> <del>feet</del> <del>were</del> <del>swelling</del> <del>and</del> <del>she</del> <del>decided</del> <del>to</del> <del>come</del> <del>in</del> <del>for</del> <del>evaluation.</del> <del>She</del> <del>was</del> <del>in</del> <del>atrial</del> <del>fibrillation</del> <del>with</del> <del>rapid</del> <del>ventricular</del> <del>response</del> <del>on</del> <del>arrival</del> <del>to</del> <del>the</del> <del>ED</del> <del>with</del> <del>a</del> <del>heart</del> <del>rate</del> <del>of</del> <del>166.</del> <del>Blood</del> <del>pressures</del> <del>have</del> <del>remained</del> <del>stable.</del> <del>Labs</del> <del>were</del> <del>significant</del> <del>for</del> <del>a</del> <del>chronic</del> <del>and</del> <del>stable</del> <del>anemia,</del> <del>potassium</del> <del>of</del> <del>3.2,</del> <del>and</del> <del>a</del> <del>creatinine</del> <del>of</del> <del>1.10</del> <del>which</del> <del>is</del> <del>up</del> <del>a</del> <del>little</del> <del>bit</del> <del>from</del> <del>her</del> <del>baseline.</del> <del>Initial</del> <del>troponin</del> <del>was</del> <del>negative.</del> <del>D-dimer</del> <del>was</del> <del>negative</del> <del>when</del> <del>adjusted</del> <del>for</del> <del>age.</del> <del>She</del> <del>was</del> <del>started</del> <del>on</del> <del>a</del> <del>diltiazem</del> <del>drip</del> <del>without</del> <del>much</del> <del>improvement</del> <del>and</del> <del>she</del> <del>has</del> <del>since</del> <del>been</del> <del>transitioned</del> <del>to</del> <del>an</del> <del>amiodarone</del> <del>drip.</del> <del>She</del> <del>is</del> <del>being</del> <del>admitted</del> <del>in</del> <del>this</del> <del>setting</del> <del>for</del> <del>further</del> <del>treatment</del> <del>and</del> <del>evaluation.</del> <del>She</del> <del>denies</del> <del>syncope,</del> <del>near</del> <del>syncope,</del> <del>chest</del> <del>pain,</del> <del>pleuritic</del> <del>pain,</del> <del>nausea,</del> <del>and</del> <del>vomiting.</del> <del>She</del> <del>states</del> <del>compliance</del> <del>with</del> <del>her</del> <del>home</del> <del>medications.</del> <del>She</del> <del>drinks</del> <del>perhaps</d
--- NOTE | 2022-12-14 13:17 | ADMGEN ---
This patient, Reyna Richardson, was admitted to IMU Room 201-01. Patient/family oriented to hospital policies and general routines including ID bracelet, bed and alarms, visiting hours, pain management, procedures, bathroom and other care routines, personal items, smoking policy, room service/diet, and visiting hours. Information on how to activate the Rapid Response Team has been discussed. Patient/Family are encouraged to report perceived risks to care and to ask questions if they do not understand what they are told or what they should do.
--- NOTE | 2022-12-14 14:17 | PM.CNCAR ---
Assessment and Plan Assessment and plan (1) Atrial fibrillation with rapid ventricular response: Code(s): I48.91 - Unspecified atrial fibrillation Status: Acute Assessment and Plan: History of atrial fibrillation dating back to 2008 with recent cardioversion on 12/10/2022. Prolonged QTc following DCCV prohibited use of anti arrhythmic therapy for maintenance of sinus rhythm. She is presenting to the hospital now with recurrent atrial fibrillation with rapid ventricular response. Difficult management as our options for medical therapy are limited. Unable to use flecainide, diltiazem because of reduced ejection fraction. Sotalol and amiodarone not appropriate choices because of history of torsades and recent QTc prolongation. At this point, rate control is the most reasonable and safe strategy with plans for either inpatient transfer for electrophysiology services or outpatient referral if we are able to adequately rate control her with metoprolol Discussed both of these options at length with patient, patient's daughter, and patient's [id number]. Patient has decided to pursue inpatient transfer for EP Services with possible AV node ablation, pacemaker/ICD implantation. Will increase metoprolol to 25 mg Q 8 hours in order to attempt some rate control while awaiting transfer. Continue anticoagulation but shift to full-dose Lovenox in anticipation for possible pacemaker implantation (keep an eye on CrCl, would require dose adjustment if she drops below 30). Continue to monitor on telemetry. (2) Heart failure with reduced ejection fraction: Code(s): I50.20 - Unspecified systolic (congestive) heart failure Status: Acute Assessment and Plan: Systolic heart failure with an EF of 25%. She does have some pulmonary rales on exam and her BNP is elevated at 6630. Diurese with furosemide 20mg IV b.i.d. Accurate intake and output Daily weights Will start GDMT with low dose Entresto 12-13 Continue metoprolol tartrate 25mg q8h for now (should be shifted to Toprol XL before discharge if she remains on BB) Can also add spironolactone if BP remains stable Daily BMP Close monitoring of BP - want to avoid hypotension because of her As above, transfer to [facility] for EP services where she will likely undergo pacemaker/ICD implantation Plan Discussed plan with AD Palomnio. Transfer to [facility] has been initiated. History of Present Illness History of Present Illness Consult date/time: 08/18/23 14:17 Requesting physician: Ceci Haro MD Consult reason: atrial fibrillation Reason For Visit: Afib with RVR Narrative: Ms. Richardson Is an 87-year-old female with a history of paroxysmal atrial fibrillation, moderate aortic stenosis, and cardiomyopathy with an EF of 25%. She does also have a history of torsades during a hospitalization at [facility]. This was in the setting of significant hypokalemia and on amiodarone. This is a patient who is followed in our office by Dr. Thakkar. She was admitted to the hospital last weekend with a chief complaint of lethargy. She was found to be in atrial fibrillation with rapid ventricular response secondary to missing doses of her amiodarone because she was unable to get her prescription refilled. She underwent cardioversion on 12/10/2022 and did convert to sinus rhythm. However, her QTc was significantly prolonged following her cardioversion therefore, amiodarone was discontinued as well as metoprolol. She was discharged from the hospital not on any antiarrhythmics or rate controlling medications because of her prolonged QTc and concern for ventricular arrhythmias in this setting. She presents to the hospital again today with a chief complaint of weakness. Once again, she was found to be in atrial fibrillation with rapid ventricular response. Review of Systems Review of Systems: All systems reviewed & are unremarkable except as noted in HPI and
[2022-12-14] MEDS: FUROSEMIDE INJ 40 MG/4 ML VIAL 20 MG IV PUSH (16:22)
[2022-12-14] MEDS: METOPROLOL TARTRATE 25 MG TABLET PO ×2 (16:22→21:12)
[2022-12-14] MEDS: ENOXAPARIN 80 MG/0.8 ML SYRINGE 70 MG SUB-Q (16:22)
--- NOTE | 2022-12-14 18:54 | PM.SD2 ---
Same Day Admit/Disch: HPI History of Present Illness Chief complaint: Palpitations, shortness of breath, weakness. Narrative: This is a pleasant 87-year-old female with paroxysmal atrial fibrillation on chronic anticoagulation, moderate aortic valve stenosis on echocardiogram in July 2020, hypothyroidism, hypertension, heart failure with reduced ejection fraction, and other comorbidities who presented to the emergency department via private vehicle from home for evaluation of palpitations, shortness of breath, and weakness. The patient provides the following history. She is known to myself and the hospitalist service from a recent admission just last week for atrial fibrillation with rapid ventricular response after presenting with similar symptoms. She underwent cardioversion on 12/10/2022 however amiodarone was unable to be continued thereafter due to prolonged QT following the procedure. Metoprolol was also held on discharge. Today she felt her heart started to race again associated with shortness of breath and weakness. On arrival to the ER she was once again found to be in atrial fibrillation with rapid ventricular response with findings of pulmonary edema on imaging. She was given a dose of furosemide in the ED and was started on 25 mg p.o. metoprolol for rate control which did not make much difference. Due to QTc prolongation and history of torsades it was felt that amiodarone and sotalol would not be appropriate choices for management and flecainide and diltiazem were unable to be used due to reduced ejection fraction. Transfer was initiated by the Cardiology group to [facility] for consultation with EP Services where she will likely undergo pacemaker/ICD implantation. At the time of my evaluation, the patient is sitting up in bed is resting comfortably. She feels okay area as long as she is not moving around. She denies syncope, near syncope, chest pain, pleuritic pain, resting shortness of breath, nausea, vomiting, and sweats. [facility] Past Medical History Medical History Aortic stenosis Valve area of 0.8 cm2 on echo 12/16/2022. Balance problems COVID-19 Dyslipidemia Generalized anxiety disorder Heart failure with reduced ejection fraction Echocardiogram on 12/10/2022 showed severely reduced LV systolic function with an estimated EF 25%, reduced RV systolic function, mild pulmonary hypertension, and moderate to severe aortic valve stenosis. Hypertension Hypothyroidism Iron deficiency Macular degeneration Paroxysmal atrial fibrillation Subarachnoid hemorrhage Surgical History Surgical History History of repair of left hip joint Family History Family History Mother Family history of Parkinson's disease Patient's mother is Sibling Family history of Parkinson's disease Family history of Alzheimer's disease Father Patient's father is Social History Social History Social History: Surrogate medical decision maker: Anabella Richardson. Code status: Full code. Smoking packs per day: 1 Smoking cigarettes per day: 20.0 Years smoked: 30 Smoking pack-years: 30.00 Smoking status: Former smoker Second hand tobacco smoke exposure: No Additional smoking assessment comments: Doesn't remember full smoking history Alcohol intake: current Drinks per week: 1 Alcohol use details: One beer perhaps every 5 months. Substance use: never Lack of Transportation: No Lack of Food: Never True Current Housing: I Have Housing Concerned About Future Housing: No Difficulty Paying Gas/Electric Bills: No Difficulty Paying for Meds: No Currently Unemployed: No Education: High School Diploma/GED Difficulty w/ Childcare or Family Care: No Addit
[2022-12-14] MEDS: SACUBITRIL/VALSARTAN 12-13 MG TABLET 1 TAB PO (21:12)
[2022-12-15] VITALS: PULSE 139; O2SAT 99
[2022-12-15 02:00] VITALS: PULSE 133
--- NOTE | 2022-12-21 16:26 | PM.IMHP ---
H&P: HPI History of Present Illness Date/Time: 12/14/22 18:30 Chief Complaint: Palpitations, shortness of breath, and weakness. Narrative: This is a pleasant 87-year-old female with paroxysmal atrial fibrillation on chronic anticoagulation, moderate aortic valve stenosis on echocardiogram in July 2020, hypothyroidism, hypertension, heart failure with reduced ejection fraction, and other comorbidities who presented to the emergency department via private vehicle from home for evaluation of palpitations, shortness of breath, and weakness. The patient provides the following history. She is known to myself and the hospitalist service from a recent admission just last week for atrial fibrillation with rapid ventricular response after presenting with similar symptoms. She underwent cardioversion on 12/10/2022 however amiodarone was unable to be continued thereafter due to prolonged QT following the procedure. Metoprolol was also held on discharge. Today she felt her heart started to race again associated with shortness of breath and weakness. On arrival to the ER she was once again found to be in atrial fibrillation with rapid ventricular response with findings of pulmonary edema on imaging. She was given a dose of furosemide in the ED and was started on 25 mg p.o. metoprolol for rate control which did not make much difference. Due to QTc prolongation and history of torsades it was felt that amiodarone and sotalol would not be appropriate choices for management and flecainide and diltiazem were unable to be used due to reduced ejection fraction. Transfer was initiated by the Cardiology group to [facility] for consultation with EP Services where she will likely undergo pacemaker/ICD implantation. At the time of my evaluation, the patient is sitting up in bed is resting comfortably. She feels okay area as long as she is not moving around. She denies syncope, near syncope, chest pain, pleuritic pain, resting shortness of breath, nausea, vomiting, and sweats. Review of Systems Review of Systems: Twelve systems were reviewed and are negative except for as per HPI. [facility] Past Medical History Medical History Aortic stenosis Valve area of 0.8 cm2 on echo 12/16/2022. Balance problems COVID-19 Dyslipidemia Generalized anxiety disorder Heart failure with reduced ejection fraction Echocardiogram on 12/10/2022 showed severely reduced LV systolic function with an estimated EF 25%, reduced RV systolic function, mild pulmonary hypertension, and moderate to severe aortic valve stenosis. Hypertension Hypothyroidism Iron deficiency Macular degeneration Paroxysmal atrial fibrillation Subarachnoid hemorrhage Surgical History Surgical History History of repair of left hip joint Family History Family History Mother Family history of Parkinson's disease Patient's mother is Sibling Family history of Parkinson's disease Family history of Alzheimer's disease Father Patient's father is Social History Social History Social History: Surrogate medical decision maker: Anabella Richardson. Code status: Full code. Smoking packs per day: 1 Smoking cigarettes per day: 20.0 Years smoked: 30 Smoking pack-years: 30.00 Smoking status: Former smoker Second hand tobacco smoke exposure: No Additional smoking assessment comments: Doesn't remember full smoking history Alcohol intake: current Drinks per week: 1 Alcohol use details: One beer perhaps every 5 months. Substance use: never Lack of Transportation: No Lack of Food: Never True Current Housing: I Have Housing Concerned About Future Housing: No Difficulty Paying Gas/Electric Bills: No Difficulty
--- NOTE | 2022-12-21 16:33 | PM.TDS ---
Transfer Discharge Sum: Prov Provider Date of admission: 12/14/22 11:41 Primary care physician: Kyle Calderón MD Admitting clinician: Santiago Brice MD Consults: 12/14/22 Consult to Physician Routine Comment: Consulting Provider: David Ackerman Reason for consultation: afib with rvr Has provider been notified: Yes Attending physician on discharge: Santiago Brice Discharging clinician: Jennyfer Vidales Anticipated date of transfer: 12/14/22 Receiving physician/facility: [facility]. DS: Admitting Diagnosis Discharge Date 12/15/22 Admitting Diagnosis 1. Atrial fibrillation with rapid ventricular response. 2. Chronic kidney disease stage 3. Heart failure with reduced ejection fraction. 4. Hypertension. 5. Hypothyroidism. DS: Discharge Diagnosis Discharge Diagnosis (1) Atrial fibrillation with rapid ventricular response: Code(s): I48.91 - Unspecified atrial fibrillation Status: Acute (2) Chronic kidney disease, stage 3 (moderate): Code(s): N18.3 - Chronic kidney disease, stage 3 (moderate) Status: Acute (3) Heart failure with reduced ejection fraction: Code(s): I50.20 - Unspecified systolic (congestive) heart failure Status: Acute (4) Hypertension: Code(s): I10 - Essential (primary) hypertension Status: Acute (5) Hypothyroidism: Code(s): E03.9 - Hypothyroidism, unspecified Status: Acute Plan The patient was admitted to the IMU with atrial fibrillation with rapid ventricular response. She was started on p.o. metoprolol 25 mg q.8 hours as well as 70 mg enoxaparin b.i.d.. Plans were made for transfer to [facility] for EP Services and consideration of pacemaker/ICD insertion. Her home medications were reviewed and resumed as appropriate. See history and physical from earlier today for further details. Transfer Discharge Sum: Med Medications Active and Home Medications: Home Medications levothyroxine 150 mcg tablet 150 mcg PO DAILY #30 tabs 11/30/21 [Rx Confirmed 12/14/22] rivaroxaban 20 mg tablet (Xarelto) 20 mg PO DAILY #90 tabs 12/07/21 [Rx Confirmed 12/14/22] cefdinir 300 mg capsule 300 mg PO Q12H #10 caps 12/11/22 [Rx Confirmed 12/14/22] alprazolam 0.25 mg tablet 0.25 mg PO TID PRN anxiety #80 tabs 12/17/22 [Rx] Transfer Discharge Sum: Hosp Hospital Course Hospital course: On arrival to the emergency department she was found to be in atrial fibrillation with rapid ventricular response in the 130s. She was admitted to the IMU after receiving 20 mg IV furosemide and 25 mg p.o. metoprolol tartrate in the ED. Her electrolytes were within normal limits with a potassium of 4.4, calcium 8.6, and magnesium of 1.8. Troponin was undetectable and her proBNP was a bit elevated at 6630. Creatinine was a bit elevated at 1.10. Chest x-ray showed small pleural effusions and mild pulmonary edema for which she received a dose of IV furosemide 20 mg. EKG did not show any acute ST segment deviations and QTc was 454. She was seen by [facility] cardiology and she was started on scheduled metoprolol and therapeutic enoxaparin. Other medications and antiarrhythmics were unable to be used for rate control due to her prolonged QTc, history of torsades, and reduced ejection fraction. Transfer was initiated to [facility] for EP Services as she will likely need pacemaker/ICD insertion. Heart rate remained in the 120s to 130s throughout her stay despite being started on metoprolol tartrate 25 mg q.8 hours. Time Spent with Patient Time attestation: Total time spent on patient encounter (same-day admit and transfer): 85 minutes. Exam Narrative: General: Well-developed elderly female sitting up in bed in no acute distress. Weight: 70.1 kg. BMI: 24.9. HEENT: Wearing corrective lenses. PERRL, EOMI. Sclera anicteric. Oral mucosa moist. Neck: Supple. No JVD. Respiratory: Respirations are nonlabored and she does no
== END 2022-12-15 03:10 | disposition short-term general hospital (02) ==
LOC: ANHED 10:35 → ANHIMU 12:01
PROVIDERS: Admitting Provider Hospitalist; Emergency Provider General Practice; PCP Family Medicine; Visit Provider Hospitalist
DX: I48.91 Unspecified atrial fibrillation (principal); I11.0 Hypertensive heart disease with heart failure; I50.20 Unspecified systolic (congestive) heart failure; I42.9 Cardiomyopathy, unspecified; E03.9 Hypothyroidism, unspecified; R53.1 Weakness; I45.4 Nonspecific intraventricular block; I35.0 Nonrheumatic aortic (valve) stenosis; Z86.16 Personal history of COVID-19; E78.5 Hyperlipidemia, unspecified; F41.1 Generalized anxiety disorder; Z87.891 Personal history of nicotine dependence; F10.90 Alcohol use, unspecified, uncomplicated; Z79.01 Long term (current) use of anticoagulants; Z79.899 Other long term (current) drug therapy
CPT/HCPCS: 36415; 36600; 71046; 80053; 82375; 82805; 83050; 83735; 83880; 84484; 85025; 85610; 85730; 93005; 96372; 96374; 96375; 96376; 99285; A9270; G0378; J1650; J1940

== ENCOUNTER 2022-12-26 13:18 | Outpatient (CLI) | payer MEDICARE, SELFPAY ==
--- NOTE | ~2022-12-26 | XR_ITS ---
XR chest 2V DATE: 12/26/2022 13:58 INDICATION: Dyspnea. Pacemaker placed one week ago. TECHNIQUE: PA and lateral views COMPARISON: 12/14/2022 AP and lateral chest FINDINGS: Interval placement of left pacemaker with leads overlying right ventricle and coronary sinu s. Cardiomegaly. Aortic calcification, ectasia and tortuosity. Bilateral hyperinflation. Resolution of bilateral lower lung infiltrates and/atelectasis since 023. No pulmonary infiltrate or consolidation, pleural effusion or pulmonary vascular congestion or p neumothorax. Diffuse osteopenia. Moderate compression fracture deformity of the lumbar vertebral body. IMPRESSION: Interval left pacemaker placement Cardiomegaly, aortic atherosclerosis No active pulmonary disease Reviewed, dictated and finalized at location B.
[2022-12-26 14:11] LABS: Hemoglobin 10.8 g/dL (12.0-15.0); Mean Corpuscular Hemoglobin 27.1 pg (26-34); Mean Corpuscular Volume 90.5 fl (80-100); Mean Platelet Volume 10.5 fl (7.4-10.4); Platelet Count Result 210 k/mm3 (150-375); Red Blood Count 3.98 M/mm3 (4.2-5.4); Red Cell Distribution Width 16.3 % (11.5-14.5); White Blood Count 4.6 K/mm3 (4.5-10.0)
[2022-12-26 14:22] LABS: Carbon Dioxide 34 mmol/L (22-30); Chloride 101 mmol/L (98-107); Sodium 139 mmol/L (137-145)
[2022-12-26 14:23] LABS: Alanine Aminotransferase 12 U/L (6-35); Albumin Level 3.9 g/dL (3.5-5.1); Alkaline Phosphatase 67 U/L (38-126); Anion Gap 4 mmol/L (8-16); Aspartate Amino Transferase 27 U/L (14-36); Bilirubin,Total 0.6 mg/dL (0.2-1.3); Blood Urea Nitrogen 15 mg/dL (7-17); Calcium 8.9 mg/dL (8.4-10.2); Estimated Glomerular Filt Rate > 60; Glucose 84 mg/dL (65-110)
[2022-12-26 15:56] LABS: Appearance Urine Clear (Clear); Bilirubin Urine Negative (Negative); Blood Urine Negative (Negative); Color Urine Yellow (Yellow); Glucose Urine UA Negative (Negative); Ketones Urine Negative (Negative); Leukocyte Esterase Ur Negative LEU/UL (NEGATIVE); Nitrate Urine Negative (Negative); Protein Urine Negative (Negative); Specific Grav Ur 1.007 (1.001-1.035); Urobilinogen Urine 0.2 mg/dL (<2.0); pH Urine 7.5 (5.0-9.0)
[2022-12-26 16:34] LABS: Add Urine Microscopic? NO
== END 2022-12-26 13:19 | disposition home or self-care (01) ==
PROVIDERS: PCP Family Medicine; Visit Provider Family Medicine
DX: E03.9 Hypothyroidism, unspecified (principal); F41.9 Anxiety disorder, unspecified; H81.10 Benign paroxysmal vertigo, unspecified ear; I10 Essential (primary) hypertension; I48.0 Paroxysmal atrial fibrillation; I50.20 Unspecified systolic (congestive) heart failure; N39.0 Urinary tract infection, site not specified; Z79.899 Other long term (current) drug therapy; R06.00 Dyspnea, unspecified; Z95.0 Presence of cardiac pacemaker; I70.0 Atherosclerosis of aorta
CPT/HCPCS: 36415; 71046; 80053; 81003; 85027; 87077; 87086; 87186